=== PATIENT | female | born 1955 | race Caucasian/White ===

== ENCOUNTER → 2019-06-05 17:37 | Outpatient (CLI) | payer OTHER, SELFPAY ==
[2019-06-05 15:00] VITALS: BMI 40.5
[2019-06-05 17:58] LABS: Absolute Lymphocyte Count 2.43 X10^3/uL (0.83-4.51); Absolute Neutrophil Count 3.8 X10^3/uL (2.0-7.7); Basophil# 0.03 X10^3/uL; Basophil% 0.4 % (0-1); Eosinophil# 0.11 X10^3/uL; Eosinophils% 1.6 % (0-5); Hematocrit 39.9 % (37-47); Lymphocyte # 2.43 X10^3/ul (4.0); Lymphocyte % 34.7 % (19-41); Mean Corp Hgb Conc 32.6 g/dL (32-36); Mean Corpuscular Hgb 29.5 pg (27.0-32.0); Mean Corpuscular Volume 90.5 fL (81-99); Mean Platelet Vol. 11.2 fl (6.2-12.0); Monocyte# 0.65 X10^3/uL; Monocyte% 9.3 % (0-10); NRBC Flagged by Analyzer 0 % (0-5); Neutrophil # 3.77 X10^3/uL (2.7-7.7); Neutrophil % 53.9 % (47-70); Platelet Count 224 K/mm3 (150-450); RBC Distribution Width CV 12.8 % (11.6-14.6); Red Blood Count 4.41 M/mm3 (4.2-5.4)
[2019-06-05 18:41] LABS: ALB/GLOB Ratio 1.1 RATIO (0.9-2.4); AST(SGOT) 21 U/L (15-37); Alanine Aminotransfer ALT/SGPT 39 U/L (13-56); Albumin, Serum 4.1 g/dL (3.2-5.0); Alkaline Phosphatase 69 U/L (45-117); Anion Gap 4 (5-15); BUN 20 mg/dL (7-18); BUN/Creat Ratio 19.2 RATIO (10-20); Calcium,Total 10.4 mg/dL (8.5-10.1); Chloride 106 mmol/L (98-107); Cholesterol 155 mg/dL (200); Creatinine, Serum 1.04 mg/dL (0.55-1.02); EST Glomerular Filtration Rate 57 mL/min (>60); Est Glom Filt Rate - Afr Amer 69 mL/min (>60); Globulin 3.9 g/dL (2.2-4.2); Glucose 112 mg/dL (74-106); High Density Lipoprotein 48 mg/dL; Potassium 4.1 mmol/L (3.5-5.1); Sodium Level 138 mmol/L (136-145); Thyroid Stim Hormone (TSH) 2.68 uIU/mL (0.358-3.74); Triglycerides 88 mg/dL; Very Low Density Lipoprotein 18 mg/dL (5-40)
[2019-06-05 20:45] LABS: Microalbumin,Random Urine 23.5 mg/L (NO RANGE EST.); Microalbumin:Creatinine Ratio 10.1 mg/g CRE (<30 mg/g CRE)
== END ==
PROVIDERS: PCP Internal Medicine; Visit Provider Internal Medicine
DX: E03.9 Hypothyroidism, unspecified (principal); E11.9 Type 2 diabetes mellitus without complications; E78.5 Hyperlipidemia, unspecified; I10 Essential (primary) hypertension
CPT/HCPCS: 80053; 80061; 82043; 82570; 84443; 85025

== ENCOUNTER 2019-06-26 10:00 | Outpatient (RCR) | payer OTHER, SELFPAY ==
[2019-06-05 15:00] VITALS: BMI 40.5
== END 2019-06-27 23:59 ==
LOC: DC 10:00
PROVIDERS: PCP Internal Medicine; Visit Provider Internal Medicine
DX: Z71.3 Dietary counseling and surveillance (principal); E11.9 Type 2 diabetes mellitus without complications
CPT/HCPCS: 97802; G0108

== ENCOUNTER 2019-07-10 09:59 | Outpatient (RCR) | payer OTHER, SELFPAY ==
[2019-06-05 15:00] VITALS: BMI 40.5
== END 2019-07-28 23:59 ==
LOC: DC 09:59
PROVIDERS: PCP Internal Medicine; Visit Provider Internal Medicine
DX: Z71.3 Dietary counseling and surveillance (principal); E11.9 Type 2 diabetes mellitus without complications
CPT/HCPCS: 97803

== ENCOUNTER 2019-08-27 09:29 | Outpatient (RCR) | payer OTHER, SELFPAY ==
[2019-06-05 15:00] VITALS: BMI 40.5
== END 2019-08-27 23:59 ==
LOC: DC 09:29
PROVIDERS: PCP Internal Medicine; Visit Provider Internal Medicine
DX: Z71.3 Dietary counseling and surveillance (principal); E11.9 Type 2 diabetes mellitus without complications
CPT/HCPCS: 97803

== ENCOUNTER 2019-09-04 08:07 | Outpatient (RCR) | payer OTHER, SELFPAY ==
[2019-06-05 15:00] VITALS: BMI 40.5
== END 2019-09-27 23:59 ==
LOC: DC 08:07
PROVIDERS: PCP Internal Medicine; Visit Provider Internal Medicine
DX: Z71.3 Dietary counseling and surveillance (principal); E11.9 Type 2 diabetes mellitus without complications
CPT/HCPCS: G0108

== ENCOUNTER → 2019-09-20 07:32 | Outpatient (CLI) | payer OTHER, SELFPAY ==
[2019-06-05 15:00] VITALS: BMI 40.5
--- NOTE | 2019-09-20 07:53 | BI_ITS ---
MAMMOGRAPHY - BILATERAL SCREENING REASON FOR EXAM: Female, 63 years old. Routine annual screening examination. PERTINENT HISTORY: Grandmother with breast cancer. TECHNIQUE: Digital bilateral breast carmen (3D mammographic acquisition) in the CC and MLO projections. 2-D mediolateral oblique (MLO) and craniocaudad (CC) views of both breasts were obtained. CAD: Full Field Digital Mammography with Computer Added Detection was performed. COMPARISON: No comparison mammograms available at this time. If any prior films become available, an addendum to this report can be generated. FINDINGS: Breast Composition: The breasts are heterogeneously dense, which may obscure small masses. There is a 1.1 cm x 1.4 cm centimeter nodule in the deep slightly upper aspect of the left breast. Correlation with ultrasound is recommended for further evaluation. No other significant abnormalities are identified. BI/SCREEN MAMM (CAD) W/CARMEN BILAT IMPRESSION: 1.1 cm x 1.4 cm spiculated nodule in the deep slightly upper aspect of the left breast. Correlation with ultrasound is recommended. ASSESSMENT CATEGORY: BIRADS Category 0: Incomplete. Need additional imaging evaluation. A letter regarding these results will be sent to the patient by the facility within 30 days. Approximately 10% of breast cancers are not detected by mammography. A normal mammogram should not delay biopsy of a clinically suspicious abnormality. [id number] Electronically Signed: Ezio Mcgill, at 14:08 EDT , Service support ,
== END ==
PROVIDERS: PCP Internal Medicine; Referring Provider Internal Medicine; Visit Provider Internal Medicine
DX: Z12.31 Encounter for screening mammogram for malignant neoplasm of breast (principal)
CPT/HCPCS: 77063; 77067

== ENCOUNTER 2019-09-23 06:56 | Day surgery (SDC) | payer OTHER, SELFPAY ==
[2019-06-05 15:00] VITALS: BMI 40.5
--- NOTE | 2019-09-23 | COLBX_PTH ---
PATIENT: ANNALISE MANZANO LOC: EN U#:[id number] AGE/SX: 63/F ROOM: RE09/23/[address]: Dr. Kristi Link MD : 1955 BED: DIS: 09/23/2019 SPEC #: [id number] RECD: 09/23/19 11:59 STATUS: ODILON REChristelle #: [id number] MARKELL: 09/23/19 00:[address]: Kristi Link DEPT: SURGICAL PATHOLOGY RECD BY: Stanley Buchanan ENTERED: 09/23/19 12:00 SP TYPE: COLON BX KAI DR: Dr. Michael Brice MD Tissues: A - Ascending colon B - Transverse colon Procedures: Surgery Specimen Level IV HEADER OPERATION: Colonoscopy - open access (MAC) PRE-OP DIAGNOSIS: Screening, history of polyps TISSUE SUBMITTED: A - Biopsy of ascending colon polyp, B - Biopsy of transverse colon polyp MICROSCOPIC DIAGNOSIS A. Ascending colon polyp, biopsy: A fragment of colonic mucosa, no pathologic diagnosis. B. Transverse colon polyp, biopsy: Fragments of tubular adenoma. SJ:caio 09/24/19 MICROSCOPIC DESCRIPTION Slides are reviewed. GROSS DESCRIPTION A - Received in fixative is one container labeled with the patient's name and designated ascending colon polyp. The specimen consists of one irregular fragment of light castelan soft tissue that measures 0.6 x 0.2 x 0.1 cm. The specimen is totally submitted in one cassette. B - Received in fixative is one container labeled with the patient's name and designated transverse colon polyp. The specimen consists of two irregular fragments of light castelan soft tissue that in aggregate measure 0.6 x 0.6 x 0.1 cm. The specimen is totally submitted in one cassette. / AM:caio 09/23/19 TC:1 CPT: 80567 x2
[2019-09-23 07:25] VITALS: BP 147/89; PULSE 63; RESP 16; TEMP 36.5; O2SAT 100; BMI 37.8
[2019-09-23] MEDS: Lactated Ringers 1,000 ML 100 ML IV (07:43)
[2019-09-23 07:50] LABS: Bedside Glucose 87 mg/dL (70-110)
--- NOTE | 2019-09-23 07:57 | HP.PCM_ITS ---
History of Present Illness Date of Admission: 09/23/19 The patient is a 63 year old F presents for screening colonoscopy due to history of colon polyps. Patient dates her last colonoscopy was about 5 years ago and she did have polyps at that time. Patient denies any chronic abdominal pain/nausea/vomiting/reflux. Patient's bowel moods daily denies any blood. Denies any family history of colon cancer. Past Medical/Surgical History - Planned Operation Planned Operative Procedure/s: colonoscopy Date of Operative Procedure: 09/23/19 Permit Signed: No S.O.S: No Is This Patient Having a Total Joint: No - Previous Hospitalizations/Surgeries HX Hospitalizations: No HX of Surgeries: gallbladder. colonoscopy x2 Any Problems With Anesthesia: No You/Your Family Experience Fever (Hyperthermia) With Anes: No Cholinesterase deficiency: No - Cardiovascular Hx Chest Pain within Last 2 months: No Hx of Irregular Heartbeat and/or Afib: No Hx Heart Attack: No Hx Congestive Heart Failure: No Hx Rheumatic Fever: No Hx Hypertension: Yes Hx Internal Defibrillator: No Hx Pacemaker: No Hx Cardiac Catheterization: No Hx Cardiac Surgery/Stents/Etc.: No Hx Stress Test: No - echo in the past HX Edema: Yes - rt ankle per hx Hx Pain in Legs when Walking/Leg Cramps: No - Respiratory Chronic Cough: No HX of Shortness of Breath: No - denies Hoarseness: No Hx Chronic Obstructive Pulmonary Disease (COPD): No Hx Asthma: No Hx Emphysema: No Hx Sleep Apnea: No Hx Oxygen Use at Home: No Hx Respiratory Tract Infection/Cold (presently): No Do You Snore Loudly (louder than talking or can be heard): No Do You Often Feel Tired/ Fatigued/ Sleepy Dring Daytime?: No Has Anyone Observed You Stop Breathing During Sleep?: No Result (for STOP score): Negative Hx Smoking: No Smoking Status: Never smoker - Gastrointestinal Hx Gastroesophageal Reflux: No Hx Gastrointestinal Disorders: Yes - polyps in the past Hx Gastrointestinal Bleed: No Hx Ulcer: No Hx Hiatal Hernia: No Difficulty Chewing/Swallowing: No Recent Onset of Swallowing Problems: No Special diet followed at home: No Hx Unplanned Weight Loss of 20#: No - planned wt loss HX Unplanned Weight Gain of 20#: No - Neurological Hx Seizures: No HX Syncope/Blackout Spells/Unconsciousness: No Hx CVA/Stroke: No Hx Transient Ischemic Attacks (TIA): No Hx Multiple Sclerosis: No Hx Parkinson's Disease: No Hx Head/Neck Injury: No Hx Headaches: No Hx Back Injury/Pain: No Recent Onset of Speech Difficulty: No Restless Legs: No Does patient have nerve stimulator: No Patient instructed to have device shut off: No Rep notified?: No - Blood Disorder Hx Leukemia: No Bleeding Tendencies: No Hx Deep Vein Thrombosis: No Hx High Cholesterol: Yes - on med Blood Transmitted Disease: No Hx Hepatitis: No Hx Cirrhosis: No Hx Anemia: No Hx Blood Disorders: No - Reproduction : No Is Patient Lactating: No Hx Hysterectomy: No Hx Tubal Ligation: No Are You Post Menopause: Yes - Genitourinary Hx Renal Disease: No - Musculoskeletal Hx Arthritis: No Hx Rheumatoid Arthritis: No Hx Gout: No Recent Onset of an Orthopedic Problem: Yes - ankle swelling, rt. has appt podiatry - Endocrine Hx Diabetes: Yes - 12 mos. Insulin: No Thyroid Disease: Yes - on med Hx Steroid Therapy: No - Psycho/Social Hx Substance Use: No Hx Alcohol Use: No Hx Anxiety: No Hx Depression: No Mental Illness: No Hx Dementia: No - Miscellaneous Hx Cancer: No Recent Exposure to Contagious Disease: No Active MRSA: No Hx of C-Diff: No Any Loose Teeth: No Allergies No Known Allergies Allergy (Unverified 09/16/19 09:41) - Discharge Is Pt Admitted From a Senior Care, or a Retirement: No Who Could Help: friend, Edilia After D/C, Where Do you Plan to Go: Return Home - From the PAT History Number of Risk Factors: 2 - Physical Exam Vitals/I&O's: Vital Signs Temp Pulse Resp BP Pulse Ox 97.7 F L 63 16 147/89 H 100 09/23/19 07:25 09/23/19 07:25 09/23/19 07:25 09/23/19 07:25 09/23/19 07:25 Oxygen Delivery Method Room Air Weight: 220 lb 10.923 oz Body Mass Index (BMI) 37.8 General: Alert, Oriented x3, Cooperative, No apparent distress HEENT: Atraumatic Lungs: Normal air movement Cardiovascular: Regular Rhythm Abdomen: Soft, Non Tender, Non-Distended Neurological: Cranial nerves II-XII grossly intact Psych/Mental Status: Normal Affect Laboratory Results 09/23/19 07:28: POC Glucose 87 Current Medications Lactated Ringer's () 1,000 mls @ 100 mls/hr IV .Q10H LIU Last Admin: 09/23/19 07:43 Dose: 100 mls/hr Documented by: Assessment/Plan 63-year-old female with history of colon polyps Procedure Criteria Procedure Type: Elective COVID Risk Discussion: The surgeon/proceduralist and patient have discussed in detail the risk of exposure to and/or potential harm posed by the COVID-19 virus with having a surgery/procedure at this time versus the risk of delaying the surgery/procedure. It is not possible to know either the risk of delaying the surgery or procedure or chance of getting an infection with perfect accuracy, but a joint decision was made between the patient and the surgeon/proceduralist to proceed at this time with the scheduled surgery/procedure as indicated on the consent form. Surgery Risks - Colonoscopy I discussed with the patient the risks of the procedure: Yes Risks Include but are not Limited To: Risks include but are not limited to: Bleeding, perforation requiring further surgery, inability to complete colonoscopy requiring barium enema.
[2019-09-23 08:35] VITALS: BP 111/63; BP 147/89; PULSE 56; RESP 16; TEMP 35.9; O2SAT 98
--- NOTE | 2019-09-23 08:39 | OP.COLON_ITS ---
Patient Name: Priyanka Talavera Procedure Date: 09/23/2019 7:39 AM Date of : 1955 Age: 63 Procedure: Colonoscopy Indications: High risk colon cancer surveillance: Personal history of colonic polyps Providers: Kristi Link MD Referring MD: Michael Brice MD Medicines: Monitored Anesthesia Care Patient Profile: This is a 63 year old female. Last Colonoscopy: 5 years ago. Complications: No immediate complications. Procedure: Pre-Anesthesia Assessment: - Prior to the procedure, a History and Physical was performed, and patient medications and allergies were reviewed. The patient's tolerance of previous anesthesia was also reviewed. The risks and benefits of the procedure and the sedation options and risks were discussed with the patient. All questions were answered, and informed consent was obtained. Prior Anticoagulants: The patient has taken no previous anticoagulant or antiplatelet agents. ASA Grade Assessment: Per anesthesia. After reviewing the risks and benefits, the patient was deemed in satisfactory condition to undergo the procedure. After I obtained informed consent, the scope was passed under direct vision. Throughout the procedure, the patient's blood pressure, pulse, and oxygen saturations were monitored continuously. The pediatric colonoscope was introduced through the anus and advanced to the cecum, identified by the appendiceal orifice, ileocecal valve and palpation. The colonoscopy was performed without difficulty. The patient tolerated the procedure well. The quality of the bowel preparation was good. Scope In: 8:02:40 AM Scope Withdrawal Time 0 hours 13 minutes 57 seconds Scope Out: 8:28:57 AM Total Procedure Duration Time 0 hours 26 minutes 17 seconds Findings: Hemorrhoids were found on perianal exam. Two sessile polyps were found in the transverse colon and ascending colon. The polyps were less than 5 mm in size. These polyps were removed with a cold biopsy forceps. Resection and retrieval were complete. Internal hemorrhoids were found. The hemorrhoids were Grade I (internal hemorrhoids that do not prolapse). A single small-mouthed diverticulum was found in the sigmoid colon. Impression: - Hemorrhoids found on perianal exam. - Two less than 5 mm polyps in the transverse colon and in the ascending colon, removed with a cold biopsy forceps. Resected and retrieved. - Internal hemorrhoids. - Diverticulosis in the sigmoid colon. Recommendation: - Discharge patient to home. - High fiber diet. - Repeat colonoscopy is recommended. The colonoscopy date will be determined after pathology results from today's exam become available for review. - Continue present medications. Procedure Code(s): --- Professional --- 00823, PT, Colonoscopy, flexible; with biopsy, single or multiple Diagnosis Code(s): --- Professional --- Z86.010, Personal history of colonic polyps K64.0, First degree hemorrhoids D12.3, Benign neoplasm of transverse colon (hepatic flexure or splenic flexure) D12.2, Benign neoplasm of ascending colon K57.30, Diverticulosis of large intestine without perforation or abscess without bleeding CPT copyright 2017 [employer]. All rights reserved. The codes documented in this report are preliminary and upon pearl maker review may be revised to meet current compliance requirements. MD Kristi Couch MD 09/23/2019 8:38:57 AM This report has been signed electronically. Number of Addenda: 0 Note Initiated On: 09/23/2019 7:39 AM
--- NOTE | 2019-09-23 08:39 | OP.CCLET_ITS ---
09/23/2019 Michael Brice MD [address] [place] [address] [place] [address] Re : Colonoscopy procedure for Priyanka Talavera Dear Dr. Brice This procedure was performed on Monday, September 23, 2019. My impressions and recommendations are as follows: Impressions : - Hemorrhoids found on perianal exam. - Two less than 5 mm polyps in the transverse colon and in the ascending colon, removed with a cold biopsy forceps. Resected and retrieved. - Internal hemorrhoids. - Diverticulosis in the sigmoid colon. Recommendations : - Discharge patient to home. - High fiber diet. - Repeat colonoscopy is recommended. The colonoscopy date will be determined after pathology results from today's exam become available for review. - Continue present medications. My findings are described in the full procedure note, which is enclosed. If I can be of further assistance, please feel free to contact me at Doctor phone number(s): , Work: . Sincerely, MD Kristi Couch MD 09/23/2019 8:38:57 AM This report has been signed electronically.
[2019-09-23 08:40] VITALS: BP 121/70; BP 147/89; PULSE 57; RESP 16; O2SAT 98
[2019-09-23 08:45] VITALS: BP 119/71; BP 147/89; PULSE 54; RESP 16; O2SAT 98
[2019-09-23 08:50] VITALS: BP 125/76; BP 147/89; PULSE 51; RESP 16; TEMP 35.8; O2SAT 100
[2019-09-23 09:13] VITALS: BP 147/89
== END 2019-09-23 09:17 | disposition home or self-care (01) ==
LOC: EN 07:05 → AC 07:15
PROVIDERS: Anesthesiology; PCP Internal Medicine; Referring Provider Internal Medicine; Visit Provider Surgery
PROC: 0DJD8ZZ Inspection of Lower Intestinal Tract, Via Natural or Artificial Opening Endoscopic (ICD-10-PCS; CPT 45378; principal; 2019-09-23 07:55)
DX: Z12.11 Encounter for screening for malignant neoplasm of colon (principal); Z87.19 Personal history of other diseases of the digestive system; K64.0 First degree hemorrhoids; D12.3 Benign neoplasm of transverse colon; D12.2 Benign neoplasm of ascending colon; K57.30 Diverticulosis of large intestine without perforation or abscess without bleeding; I10 Essential (primary) hypertension; E11.9 Type 2 diabetes mellitus without complications; E78.00 Pure hypercholesterolemia, unspecified
CPT/HCPCS: 45380; 82962; 87635; 88305; G2023; J7120; U0003

== ENCOUNTER 2019-10-03 09:37 | Outpatient (RCR) | payer OTHER, SELFPAY ==
[2019-09-25 10:45] VITALS: BMI 37.8
== END 2019-10-28 23:59 ==
LOC: DC 09:37
PROVIDERS: PCP Internal Medicine; Visit Provider Internal Medicine
DX: Z71.3 Dietary counseling and surveillance (principal); E11.9 Type 2 diabetes mellitus without complications
CPT/HCPCS: G0109

== ENCOUNTER → 2019-10-04 10:58 | Outpatient (CLI) | payer OTHER, SELFPAY ==
[2019-09-25 10:45] VITALS: BMI 37.8
--- NOTE | 2019-10-04 10:58 | US_ITS ---
STUDY: ULTRASOUND BREAST - LEFT REASON FOR EXAM: Female, 63 years old. Abnormal screening mammogram. TECHNIQUE: Axial and longitudinal images of the LEFT breast were performed with a high resolution ultrasound transducer. # OF IMAGES: 55 COMPARISON: Comparison is made with prior mammogram dated 09/20/2019 and 10/04/2019. FINDINGS: LEFT Breast: There is a 6 mm x 5 mm x 3 mm cyst at the 5 o''clock position of the breast at 3 cm from the nipple. There is also evidence of a 6 mm x 5 mm x 4 mm cyst with septation at the 6 o''clock position of the breast 3 cm from nipple. The mammographic abnormality is not seen on ultrasound. Additional mammographic examination will be performed. US/Breast Limited Unilateral IMPRESSION: 2 subcentimeters cysts are seen as described. Additional mammographic views will be performed. ASSESSMENT CATEGORY: BIRADS Category 0: Incomplete. Need additional imaging evaluation. A letter regarding these results will be sent to the patient by the facility within 30 days. Electronically Signed: Ezio Mcgill, at 14:49 EDT , Service support ,
--- NOTE | 2019-10-04 11:22 | BI_ITS ---
MAMMOGRAPHY - UNILATERAL DIAGNOSTIC: LEFT BREAST REASON FOR EXAM: Female, 63 years old. Abnormal screening mammogram. PERTINENT HISTORY: Grandmother with breast cancer. TECHNIQUE: Compression spot views of the left breast in the mediolateral oblique and craniocaudad views were obtained. 3-D mammographic acquisition of the left breast was obtained as well. CAD: Full Field Digital Mammography with Computer Added Detection was performed. COMPARISON: Comparison is made with prior mammogram dated 09/20/2019. FINDINGS: Breast Composition: The breasts are heterogeneously dense, which may obscure small masses. Persistent 1.1 cm by 1.4 cm nodule in the deep slightly upper aspect of the left breast. With negative ultrasound, A biopsy is recommended. No other significant abnormalities are identified. BI/DIAG MAMM W/CAD, UNILAT IMPRESSION: Persistent nodule in the deep slightly upper aspect of the left breast as described. A biopsy is recommended. ASSESSMENT CATEGORY: BIRADS Category 4: Suspicious - Biopsy Should Be Considered. A letter regarding these results will be sent to the patient by the facility within 30 days. Approximately 10% of breast cancers are not detected by mammography. A normal mammogram should not delay biopsy of a clinically suspicious abnormality. Electronically Signed: Ezio Mcgill, at 13:23 EDT , Service support ,
== END ==
PROVIDERS: PCP Internal Medicine; Referring Provider Internal Medicine; Visit Provider Internal Medicine
DX: R92.8 Other abnormal and inconclusive findings on diagnostic imaging of breast (principal); Z80.3 Family history of malignant neoplasm of breast
CPT/HCPCS: 76642; 77065

== ENCOUNTER → 2019-10-14 13:55 | Outpatient (CLI) | payer OTHER, SELFPAY ==
[2019-10-14 09:30] VITALS: BMI 37.8
[2019-10-18 13:56] LABS: HPV APTIMA, High Risk Negative (Negative)
== END ==
PROVIDERS: PCP Internal Medicine; Referring Provider Nurse Practitioner Women's Health; Visit Provider Nurse Practitioner Women's Health
DX: Z01.411 Encounter for gynecological examination (general) (routine) with abnormal findings (principal); N89.8 Other specified noninflammatory disorders of vagina; Z12.4 Encounter for screening for malignant neoplasm of cervix
CPT/HCPCS: 87070; 87205; 87624; 88175; G0145

== ENCOUNTER 2019-10-23 05:38 | Day surgery (SDC) | payer OTHER, SELFPAY ==
[2019-10-09 08:20] VITALS: BMI 37.8
--- NOTE | 2019-10-09 09:22 | HP_ITS ---
Intake Vital Signs 10/09/19 BMI 37.8 10/09/19 Height 5 ft 4 in 10/09/19 Weight: 213 lb 10/09/19 BMI 36.6 10/09/19 BP 118/79 10/09/19 Blood Pressure Location Rt brachial 10/09/19 Position Sitting 10/09/19 Respiration 16 Intake Visit Reasons: Birads 4 L Breast Chief Complaint: 3 m f/u [employer] Supervisor Required: No Is patient in pain?: No Allergies No Known Allergies Allergy (Verified 10/09/19 08:19) Medications metformin 500 mg tablet,extended release 24 hr 500 mg PO DAILY #90 tab 06/05/19 [Rx Confirmed 10/09/19] atorvastatin 20 mg tablet 20 mg PO DAILY #90 tab 09/26/19 [Rx Confirmed 10/09/19] levothyroxine 112 mcg tablet 112 mcg PO DAILY #90 tab 09/26/19 [Rx Confirmed 10/09/19] olmesartan 20 mg tablet 20 mg PO DAILY #90 tab 09/26/19 [Rx Confirmed 10/09/19] [facility] Medical History Thyroid disease (Chronic) High cholesterol (Chronic) High blood pressure (Chronic) Diabetes (Chronic) Surgical History History of cholecystectomy (Acute) Family History Sister Autoimmune disease Father Myocardial infarction Mother Hypertension High cholesterol Thyroid disorder Skin cancer Social History (Updated 10/09/19 @ 09:[address] Wally Najera MD) Smoking Status: Never smoker alcohol intake: never substance use type: does not use what type of physical activity do you participate in: walking frequency: 3-4 times per week HPI HPI HPI: ANNALISE MANZANO, is a 63 F who presents to the office today for HPI HPI Surgical H&P: Yes HPI: ANNALISE MANZANO, is a 63 F who presents to the office today for For 2 issues. #1 patient has an abnormal mammogram completed at [facility] on 10/04/2019. There is a 1.1 x 1.4 cm nodule slightly deep upper aspect of the left breast with a negative ultrasound and they were recommending a biopsy be performed. When reviewing this lesion it is difficult to see it at all even on the mammograms and reviewing the ultrasounds I agree that there is nothing there to be seen. In addition the patient has a mass on her upper inner thigh on the right side. She has been losing weight and this is been irritating for her particularly when she is walking. ROS General General: No weight change, appetite, fatigue, colon cancer, breast cancer or weakness HEENT HEENT: No difficulty swallowing, eye injury, eye surgery, swollen glands or hoarseness Endo Endocrine: Yes thyroid disease and diabetes mellitus; no thyroid cancer, Hair loss, heat intolerance or cold intolerance Skin Skin: No rash or changing moles Breast Breast: Yes abnormal mammogram and abnormal US; no left breast lump, right breast lump, nipple discharge, breast pain or breast enlargement Musc Musculoskeletal: No back problems, arthritis, rheumatoid arthritis, gout or joint pain Cardio Cardiovascular: Yes high blood pressure; no murmur, pacemaker, heart disease, atrial fibrillation, heart attack, heart stent, palpitations, shortness of breat with exertion or chest pain Psych Psychiatric: No depression, anxiety or hearing voices Resp Respiratory: No shortness of breath, No sleep apnea, No cough, No COPD, No asthma, No emphysema, No wheezing Gastro Gastrointestinal: No abdominal pain, No nausea or vomiting, No diarrhea, No constipation, No blood in stool, No acid reflux, No hemorrhoids, No ulcers, Yes gallbladder problem, No black,tarry stools Ze Hematologic: No blood thinners, No blood disorders, No bleeding, No anemia, No blood clots Neuro Neurologic: No system reviewed and no additional complaints, except as docu, No as per HPI, No abnormal walking, No abnormal hearing, No abnormal movements, No abnormal speech, No behavioral changes, No burning sensations, No confusion, No seizure-like activity, No unsteadiness, No dizziness, No localized weakness, No frequent falls, No headache(s), No lack of coordination, No loss of vision, No memory loss, No numbness, No other visual disturbances, No radiating pain, No restless legs, No sensory deficit, No fainting, No tingling, No tremor(s), No weakness, No other Exam Const General: no acute distress, well developed, well hydrated Orientation: oriented to person, oriented to place, oriented to time [facility] Head: normocephalic, atraumatic Ears: external ears normal Mouth: moist mucous membranes Eyes Sclera: sclerae normal Pupils: normal by confrontation Neck Neck: no lymphadenopathy noted Neck mass: No Thyroid: thyroid normal, symmetrical Chest Chest palpation & inspection: normal inspection of the chest Breast Palpation: No nipple discharge Other: No masses can be palpated at this time. Resp Effort & Inspection: normal respiratory effort Auscultation: clear to auscultation bilaterally Percussion: percussion normal Cardio Rate: regular rate Rhythm: regular rhythm Heart Sounds: no murmurs GI Palpation: soft, no hepatosplenomegaly, no masses, nontender Rectal Exam: other Other: Rectal exam deferred. Skin Other: Large 15 cm lesion in the upper medial thigh consistent with a soft tissue lipoma. It does not feel firm like a sarcoma Extrem General: normal to inspection, no clubbing, cyanosis or edema Assessment & Plan Problems 1. Abnormal mammogram of left breast R92.8 2. Lesion of subcutaneous tissue L98.9 Plan I know from past experience that there is no way I am going to be able to biopsy this lesion in her left breast using her fissure table. I am going to get a referral from the [facility] to see if this is a biopsy that they can be performed. The lesion on her upper inner thigh needs to be removed in the OR. We will do an excision of this. I have counseled the patient as to the risks of the procedure, including but not limited to: infection, bleeding, injury to any blood vessels/nerves, injury to any bowel/bladder, injury to any intraabdominal organs such as the liver/spleen, perforation of the GI tract, intraabdominal abscess/bleeding, incisional hernias, injury to the common bile duct/biliary ducts, injury to the spermatic cord/vessels/testicles, recurrence of hernia(s), complications of anesthesia, etc. The patient verbalizes understanding. Coding Level of Care Code Off vis,new,level 4 Diagnoses Abnormal mammogram of left breast R92.8 Lesion of subcutaneous tissue L98.9 COVID (Procedure Consent) Procedure Criteria Procedure Criteria: Yes Elective The surgeon/proceduralist and patient have discussed in detail the risk of exposure to and/or potential harm posed by the COVID-19 virus with having a surgery/procedure at this time versus the risk of? delaying the surgery/procedure. It is not possible to know either the risk of delaying the surgery or procedure or chance of getting an infection with perfect accuracy, but a joint decision was made between the patient and the surgeon/proceduralist ?to proceed at this time with the scheduled surgery/procedure as indicated on the consent form. 10/09/19 0923 <Electronically signed by Wally membreno MD> Date _ Wally Najera MD I have re-examined the patient. There are no clinical changes since date of exam.
[2019-10-14 09:30] VITALS: BMI 37.8
[2019-10-23] VITALS (8 sets, daily range): BP systolic 91–118; BP diastolic 54–84; PULSE 59–66; RESP 16; TEMP 36.1–36.4; O2SAT 93–99; BMI 36.3
[2019-10-23 06:30] LABS: Bedside Glucose 100 mg/dL (70-110)
[2019-10-23] MEDS: Lactated Ringers 1,000 ML 100 ML IV (06:37)
[2019-10-23] MEDS: Cefazolin 2 GM in 0.9% Normal Saline 100 ML IV (07:28)
--- NOTE | 2019-10-23 07:30 | CYST_PTH ---
PATIENT: ANNALISE MANZANO LOC: [facility] U#:[id number] AGE/SX: 63/F ROOM: RE10/23/[address]: Dr. Wally Najera MD : 1955 BED: DIS: 10/23/2019 SPEC #: [id number] RECD: 10/23/19 10:02 STATUS: ODILON MEIR #: [id number] MARKELL: 10/23/19 07:[address]: Wally Najera DEPT: SURGICAL PATHOLOGY RECD BY: Gomez Ibarra ENTERED: 10/23/19 10:23 SP TYPE: Cyst OTHR DR: Dr. Michael Brice MD Tissues: CYST Procedures: Surgery Specimen Level III HEADER OPERATION: Excision of 7.5 cm sebaceous cyst right thigh PRE-OP DIAGNOSIS: Lesion upper inner right thigh TISSUE SUBMITTED: 7.5 cm sebaceous cyst upper inner right thigh MICROSCOPIC DIAGNOSIS Cyst of upper inner right thigh, excision: Epidermal inclusion cyst. AM:caio 10/24/19 MICROSCOPIC DESCRIPTION Slides are reviewed. GROSS DESCRIPTION Received in fixative is one container labeled with the patient's name and designated right thigh sebaceous cyst. The specimen consists of a castelan-pink cyst previously ruptured focally measuring 6.5 x 5.5 x 2 cm. The cyst is filled with applesauce-like material. Retail Grocer sections are submitted in one cassette. / SJ:caio 10/23/19 TC:5 CPT: 56735
[2019-10-23] MEDS: Bupivacaine Mpf 0.5% 30 ML VIAL (07:48)
--- NOTE | 2019-10-23 08:11 | PCM.OPRPT ---
Problem List (1) Lesion of subcutaneous tissue Status: Acute (2) Sebaceous cyst Status: Acute Report of Operation Date of Procedure: 10/23/19 Pre-Operative Diagnosis: Lesion of subcutaneous tissues to right inner thigh Post-Operative Diagnosis: 7-1/2 cm sebaceous cyst to right inner thigh Surgery/Procedure Performed:: Excision of a 7-1/2 cm sebaceous cyst to right inner thigh Type of Anesthesia:: General Anesthesiologist: Joseph Lunsford Specimen's removed: 7-1/2 cm sebaceous cyst Estimated Blood Loss (mL): < 25 cc Description of Procedure: Patient was brought into the operating room. Placed in the supine position. Under excellent general anesthetic the legs were placed up in stirrups and right inner thigh was sterilely prepped draped in usual fashion. Local was injected incision was made I dissected down and encountered a sebaceous cyst I evacuated the cystic contents and then with the use of electrocautery I remove the entire capsule of the sebaceous cyst. I sent this to pathology for permanent sectioning. I irrigated out the wound. I brought the wound together with deep dermal stitches of 3-0 Vicryl then a running 4-0 nylon on the skin. Sterile dressings were applied and the patient tolerated the procedure well. - Admit VTE Documentation VTE Present on Admission: No VTE Mechan Device Prophylaxis: SCD's VTE Pharm Prophylaxis ordered?: No Reason prophylaxis not ordered:: Treatment Not Indicated 114x: 29410 Exc tr-ext b9+juliann >4.0 cm
--- NOTE | 2019-10-23 08:14 | DCINST_ITS ---
Discharge Diet: Light diet - advance as tolerated - If you have questions about your diet instructions, please talk to your doctor. Discharge Activity: May Not Drive - for 1 week or while taking narcotic pain medicine. May shower in (days): 1 Lifting Restrictions: 10 pounds Call your doctor if your incision/area has: Continuous Slow Oozing, Sudden Increased Bleeding, Increased Pain/ Swelling, Increased Redness, Foul Smelling Discharge Call your doctor if you observe: Fever of 101 or Higher Suture Line Care: Avoid Pulling/Pushing, Avoid Pinching/Bending Additional Dressing/Incision Instructions:: Change or remove dressing in 4 days. Leave steri-strips in place for 1 week. Allergies/Adverse Reactions: Allergies No Known Allergies Allergy (Verified 10/23/19 06:07) Medications to take at Discharge metformin 500 mg tablet,extended release 24 hr 500 mg PO DAILY #90 tab 06/05/19 atorvastatin 20 mg tablet 20 mg PO DAILY #90 tab 09/26/19 levothyroxine 112 mcg tablet 112 mcg PO DAILY #90 tab 09/26/19 olmesartan 20 mg tablet 20 mg PO DAILY #90 tab 09/26/19 Oxycodone HCl/Acetaminophen [Percocet 5/325] 1 - 2 tablet PO Q4H PRN PRN 6 Days #30 tablet 10/23/19 The following prescriptions were given: Oxycodone HCl/Acetaminophen [Percocet 5/325] 1 - 2 tablet PO Q4H PRN PRN 6 Days #30 tablet PRN Reason: Pain Transmission Status: Received by [id number] Primary Care Physician: Michael Brice MD [Primary Care Provider] - Test Results: Test results from this visit will be discussed in further detail at your follow- up appointment, if applicable. Please Follow Up With: Wally Najera MD - [phone] When: Call to make an appointment to be seen in about 10 days.
[2019-10-23 08:30] LABS: Bedside Glucose 87 mg/dL (70-110)
== END 2019-10-23 10:25 | disposition home or self-care (01) ==
LOC: SDC 05:41 → AC 05:41
PROVIDERS: Anesthesiology; PCP Internal Medicine; Referring Provider Surgery; Visit Provider Surgery
PROC: (CPT 11406; principal; 2019-10-23 07:15)
DX: L72.3 Sebaceous cyst (principal); E03.9 Hypothyroidism, unspecified; E78.00 Pure hypercholesterolemia, unspecified; E11.9 Type 2 diabetes mellitus without complications; I10 Essential (primary) hypertension; Z79.84 Long term (current) use of oral hypoglycemic drugs; Z79.899 Other long term (current) drug therapy
CPT/HCPCS: 11406; 82962; 87635; 88304; 94799; J7120; J2405; U0003

== ENCOUNTER → 2019-11-07 08:31 | Outpatient (CLI) | payer OTHER, SELFPAY ==
--- NOTE | 2019-10-09 09:22 | HP_ITS ---
Intake Vital Signs 10/09/19 BMI 37.8 10/09/19 Height 5 ft 4 in 10/09/19 Weight: 213 lb 10/09/19 BMI 36.6 10/09/19 BP 118/79 10/09/19 Blood Pressure Location Rt brachial 10/09/19 Position Sitting 10/09/19 Respiration 16 Intake Visit Reasons: Birads 4 L Breast Chief Complaint: 3 m f/u Head Housekeeper Required: No Is patient in pain?: No Allergies No Known Allergies Allergy (Verified 10/09/19 08:19) Medications metformin 500 mg tablet,extended release 24 hr 500 mg PO DAILY #90 tab 06/05/19 [Rx Confirmed 10/09/19] atorvastatin 20 mg tablet 20 mg PO DAILY #90 tab 09/26/19 [Rx Confirmed 10/09/19] levothyroxine 112 mcg tablet 112 mcg PO DAILY #90 tab 09/26/19 [Rx Confirmed 10/09/19] olmesartan 20 mg tablet 20 mg PO DAILY #90 tab 09/26/19 [Rx Confirmed 10/09/19] [facility] Medical History Thyroid disease (Chronic) High cholesterol (Chronic) High blood pressure (Chronic) Diabetes (Chronic) Surgical History History of cholecystectomy (Acute) Family History Sister Autoimmune disease Father Myocardial infarction Mother Hypertension High cholesterol Thyroid disorder Skin cancer Social History (Updated 10/09/19 @ 09:[address] Wally Najera MD) Smoking Status: Never smoker alcohol intake: never substance use type: does not use what type of physical activity do you participate in: walking frequency: 3-4 times per week HPI HPI HPI: ANNALISE MANZANO, is a 63 F who presents to the office today for HPI HPI Surgical H&P: Yes HPI: ANNALISE MANZANO, is a 63 F who presents to the office today for For 2 issues. #1 patient has an abnormal mammogram completed at [facility] on 10/04/2019. There is a 1.1 x 1.4 cm nodule slightly deep upper aspect of the left breast with a negative ultrasound and they were recommending a biopsy be performed. When reviewing this lesion it is difficult to see it at all even on the mammograms and reviewing the ultrasounds I agree that there is nothing there to be seen. In addition the patient has a mass on her upper inner thigh on the right side. She has been losing weight and this is been irritating for her particularly when she is walking. ROS General General: No weight change, appetite, fatigue, colon cancer, breast cancer or weakness HEENT HEENT: No difficulty swallowing, eye injury, eye surgery, swollen glands or hoarseness Endo Endocrine: Yes thyroid disease and diabetes mellitus; no thyroid cancer, Hair loss, heat intolerance or cold intolerance Skin Skin: No rash or changing moles Breast Breast: Yes abnormal mammogram and abnormal US; no left breast lump, right breast lump, nipple discharge, breast pain or breast enlargement Musc Musculoskeletal: No back problems, arthritis, rheumatoid arthritis, gout or joint pain Cardio Cardiovascular: Yes high blood pressure; no murmur, pacemaker, heart disease, atrial fibrillation, heart attack, heart stent, palpitations, shortness of breat with exertion or chest pain Psych Psychiatric: No depression, anxiety or hearing voices Resp Respiratory: No shortness of breath, No sleep apnea, No cough, No COPD, No asthma, No emphysema, No wheezing Gastro Gastrointestinal: No abdominal pain, No nausea or vomiting, No diarrhea, No constipation, No blood in stool, No acid reflux, No hemorrhoids, No ulcers, Yes gallbladder problem, No black,tarry stools Ze Hematologic: No blood thinners, No blood disorders, No bleeding, No anemia, No blood clots Neuro Neurologic: No system reviewed and no additional complaints, except as docu, No as per HPI, No abnormal walking, No abnormal hearing, No abnormal movements, No abnormal speech, No behavioral changes, No burning sensations, No confusion, No seizure-like activity, No unsteadiness, No dizziness, No localized weakness, No frequent falls, No headache(s), No lack of coordination, No loss of vision, No memory loss, No numbness, No other visual disturbances, No radiating pain, No restless legs, No sensory deficit, No fainting, No tingling, No tremor(s), No weakness, No other Exam Const General: no acute distress, well developed, well hydrated Orientation: oriented to person, oriented to place, oriented to time [facility] Head: normocephalic, atraumatic Ears: external ears normal Mouth: moist mucous membranes Eyes Sclera: sclerae normal Pupils: normal by confrontation Neck Neck: no lymphadenopathy noted Neck mass: No Thyroid: thyroid normal, symmetrical Chest Chest palpation & inspection: normal inspection of the chest Breast Palpation: No nipple discharge Other: No masses can be palpated at this time. Resp Effort & Inspection: normal respiratory effort Auscultation: clear to auscultation bilaterally Percussion: percussion normal Cardio Rate: regular rate Rhythm: regular rhythm Heart Sounds: no murmurs GI Palpation: soft, no hepatosplenomegaly, no masses, nontender Rectal Exam: other Other: Rectal exam deferred. Skin Other: Large 15 cm lesion in the upper medial thigh consistent with a soft tissue lipoma. It does not feel firm like a sarcoma Extrem General: normal to inspection, no clubbing, cyanosis or edema Assessment & Plan Problems 1. Abnormal mammogram of left breast R92.8 2. Lesion of subcutaneous tissue L98.9 Plan I know from past experience that there is no way I am going to be able to biopsy this lesion in her left breast using her fissure table. I am going to get a referral from the [facility] to see if this is a biopsy that they can be performed. The lesion on her upper inner thigh needs to be removed in the OR. We will do an excision of this. I have counseled the patient as to the risks of the procedure, including but not limited to: infection, bleeding, injury to any blood vessels/nerves, injury to any bowel/bladder, injury to any intraabdominal organs such as the liver/spleen, perforation of the GI tract, intraabdominal abscess/bleeding, incisional hernias, injury to the common bile duct/biliary ducts, injury to the spermatic cord/vessels/testicles, recurrence of hernia(s), complications of anesthesia, etc. The patient verbalizes understanding. Coding Level of Care Code Off vis,new,level 4 Diagnoses Abnormal mammogram of left breast R92.8 Lesion of subcutaneous tissue L98.9 COVID (Procedure Consent) Procedure Criteria Procedure Criteria: Yes Elective The surgeon/proceduralist and patient have discussed in detail the risk of exposure to and/or potential harm posed by the COVID-19 virus with having a surgery/procedure at this time versus the risk of? delaying the surgery/procedure. It is not possible to know either the risk of delaying the surgery or procedure or chance of getting an infection with perfect accuracy, but a joint decision was made between the patient and the surgeon/proceduralist ?to proceed at this time with the scheduled surgery/procedure as indicated on the consent form. 10/09/19 0923 <Electronically signed by Wally membreno MD> Date _ Wally Najera MD
[2019-11-01 15:02] VITALS: BMI 36.3
--- NOTE | 2019-11-07 | IMM_PTH ---
PATIENT: ANNALISE MANZANO LOC: [facility] U#:[id number] AGE/SX: 69/F ROOM: RE11/07/[address]: Dr. Sean Jaramillo MD : 1955 BED: DIS: SPEC #: [id number] RECD: 11/11/19 07:39 STATUS: ODILON REQ #: [id number] MARKELL: 11/07/19 00:[address]: Sean Jaramillo DEPT: IMMUNOHISTOCHEMISTRY RECD BY: Irene Ruvalcaba ENTERED: 11/11/19 07:40 SP TYPE: IMMUNO OTHR DR: Dr. Michael Brice MD Tissues: Left breast, NOS Procedures: CALPONIN-1 (add) CK5-6 (add) CK8 (add) E-CAD (add) HER2 CORNELIUS (add) KI-67 (add) P53 (add) MT (add) P40 (add) ER (initial) PHYSICIAN & [address] [address] SPECIMEN INFORMATION: Tissue Source: Left breast Clinical Info: Left lateral breast density Specimen Number: [id number] CPT code: 84995, 24393 x6, 38970 x3 METHODOLOGY: Deparaffinized sections of prefer/formalin-fixed tissue or PAP/DQ stained slides are incubated with monoclonal/polyclonal antibodies/oligonucleotide probes. Localization is made via biotin free immunoperoxidase method. Appropriate controls are performed and reacted as expected. Results on target cell population are indicated in the following table: RESULTS: ANTIBODY / CLONE RESULT P53 (DO-7) positive, 10%, dim Ki-67 (30-9) positive, 6% CK8 (83txoiI00) positive CK5-6 (D5 & 1684) positive, carcinoma Calponin-1 (JN569A) negative P40 (BC28) negative E-Cad (ECH-6) positive MORPHOMETRIC ANALYSIS ER (clone 6F11) positive, >95%, strong MT (clone 16/1E2) positive, >95%, strong Her-2Neu (clone CB11) positive, 2-3+ The prognostic test for HER2 is performed on formalin-fixed paraffin embedded tissue. A 3+ (positive) staining pattern is defined as intense, homogeneous, complete, circumferential membranous staining in >10% of contiguous tumor cells. A similar weak (2+) staining pattern is interpreted as equivocal. GEN follow-up testing is recommended for all equivocal cases. Positivity/negativity for ER/MT is reported if > or < 1% of the tumor cells are immuno- reactive, respectively. The ASCO/CAP criteria is used for scoring. Reference: Journal of Clinical Oncology, 2013; 31:7069-1836 & 2010; 16:8286-5798. Duration of fixation: 10.5 Hrs; Sample Adequate: Yes. These assays have not been validated on decalcified tissues. Results should be interpreted with caution given the likelihood of false negativity on decalcified specimens. These tests were developed and their performance characteristics determined by [facility]. They may not have been cleared or approved by the U.S. Food and Drug Administration. The FDA has determined that such clearance or approval is not necessary. The above immunohistochemical/dualISH markers are ordered and reviewed by the Pathologist. INTERPRETATION: Left breast, stereotactic core biopsy: Ductal carcinoma in situ, nuclear grade 1-2. AM:caio 11/11/19 Case has been reviewed in consultation with Dr. Reed who concurs with the above diagnosis. IDC:SJ
--- NOTE | 2019-11-07 09:00 | BRBX_PTH ---
PATIENT: ANNALISE MANZANO LOC: [facility] U#:[id number] AGE/SX: 69/F ROOM: RE11/07/[address]: Dr. Sean Jaramillo MD : 1955 BED: DIS: SPEC #: [id number] RECD: 11/07/19 09:53 STATUS: ODILON MEIR #: [id number] MARKELL: 11/07/19 09:[address]: Sean Jaramillo DEPT: SURGICAL PATHOLOGY RECD BY: Joshua Bianchi ENTERED: 11/07/19 13:33 SP TYPE: BREAST BX OTHR DR: Dr. Michael Brice MD Tissues: Left breast, NOS Procedures: Surgery Specimen Level IV HEADER OPERATION: Left stereotactic breast biopsy PRE-OP DIAGNOSIS: Left lateral breast density TISSUE SUBMITTED: Left breast core tissue ISCHEMIC TIME: 1 minute FIXATION TIME: 10.5 hours MICROSCOPIC DIAGNOSIS Left breast, stereotactic needle core biopsy: Ductal carcinoma in situ with the following characteristics: Maximal length - 1.2 millimeters Nuclear Grade - 2 Type - cribriform with focal comedo necrosis. AM:caio 11/08/19 COMMENT ER/RI/Jsx6glh studies are being performed on sections of tumor and the results from this study will be reported separately ([id number]). Case has been reviewed in consultation with Dr. Reed who concurs with the above diagnosis. IDC:SJ MICROSCOPIC DESCRIPTION Slides are reviewed. GROSS DESCRIPTION Received is one container labeled with the patient's name and not further designated. The specimen consists of multiple irregular fragments of yellow to light castelan fibrofatty tissue that in aggregate measure 2.5 x 2 x 0.2 cm. The specimen is totally submitted in one cassette. / AM:caio 11/07/19 TC:0 CPT: 24507
--- NOTE | 2019-11-07 09:18 | PCM.OPRPT ---
Problem List (1) Left breast mass Status: Acute Report of Operation Date of Procedure: 11/07/19 Pre-Operative Diagnosis: Left breast abnormal mammogram Post-Operative Diagnosis: Same Surgery/Procedure Performed:: Stereotactic guided left breast core needle biopsy with clip placement Description of Procedure: Patient was placed on the stereotactic table and the left breast was compressed and mammographic views were obtained. The abnormality was visualized and +/- 15 degree views were obtained. The computer was used to localize the mass and the position was programmed in the computer. Next the skin was prepped and anesthetized. A small yadira was made in the skin with a scalpel. Next the needles deployed into the breast and several biopsies were obtained. A clip was then placed into the breast and the needle was removed. Images were obtained and the clip was in place. A Steri-Strip and bandage were placed over the incision and the patient was sent for mammographic views. Patient tolerated the procedure well.
== END ==
PROVIDERS: PCP Internal Medicine; Referring Provider Surgery; Visit Provider Surgery
DX: D05.12 Intraductal carcinoma in situ of left breast (principal); E78.00 Pure hypercholesterolemia, unspecified; E11.9 Type 2 diabetes mellitus without complications; I10 Essential (primary) hypertension; Z90.49 Acquired absence of other specified parts of digestive tract; L98.9 Disorder of the skin and subcutaneous tissue, unspecified
CPT/HCPCS: 19081; 88305; 88341; 88342; J7050; A4648

== ENCOUNTER 2019-11-27 12:02 | Day surgery (SDC) | payer OTHER, SELFPAY ==
[2019-11-01 15:02] VITALS: BMI 36.3
[2019-11-27 12:30] VITALS: BP 141/90; PULSE 65; RESP 16; TEMP 36.3; O2SAT 100; BMI 36.8
--- NOTE | 2019-11-27 12:30 | BI_ITS ---
SURGICAL BREAST SPECIMEN RADIOGRAPH CLINICAL: Document presence of tissue clip marker in biopsy specimen. FINDINGS: Specimen shows presence of tissue clip marker. Electronically Signed: Ezio Mcgill, at 15:59 EDT , Service support , BI/Breast Biopsy Specimen
[2019-11-27] MEDS: Lactated Ringers 1,000 ML 100 ML IV (12:45)
[2019-11-27 12:50] LABS: Bedside Glucose 100 mg/dL (70-110)
--- NOTE | 2019-11-27 13:23 | PCM.HP.STD ---
Problem List (1) Ductal carcinoma in situ (DCIS) of left breast Status: Acute History of Present Illness Date of Admission: 11/27/19 The patient is a 64 year old F who has stereotactic biopsy of the left breast which showed DCIS. Patient has been having no issues since her biopsy. Past Medical History Past Medical History (Chronic Problems): Chronic Problems (Last Updated 11/01/19 @ 15:00 by Nay Schultz) Lipoma (Chronic) Hypothyroidism (Chronic) Type 2 diabetes mellitus (Chronic) Thyroid disease (Chronic) High cholesterol (Chronic) High blood pressure (Chronic) Diabetes (Chronic) Medical History: Medical History (Last Updated 11/01/19 @ 15:00 by Nay Schultz) Thyroid disease (Chronic) E07.9 High cholesterol (Chronic) E78.00 High blood pressure (Chronic) I10 Diabetes (Chronic) E11.9 Epidermal inclusion cyst L72.0 Allergies No Known Allergies Allergy (Verified 11/27/19 12:29) Home Medications: Ambulatory Orders Medication Instructions Recorded metformin 500 mg tablet,extended 500 mg PO DAILY #90 tab 06/05/19 release 24 hr atorvastatin 20 mg tablet 20 mg PO DAILY #90 tab 09/26/19 levothyroxine 112 mcg tablet 112 mcg PO DAILY #90 tab 09/26/19 olmesartan 20 mg tablet 20 mg PO DAILY #90 tab 09/26/19 Surgical History: Surgical History (Last Updated 11/01/19 @ 15:01 by Nay Schultz) History of cholecystectomy Z90.49 1994 history excision skin lesion right inner thigh Onset Date: ~10/23/19 Smoking Status: Never smoker Tobacco Use: Non-smoker Review of Systems Constitutional: Denies: Anorexia, Chills, Fever HEENT: Denies: Difficulty Swallowing Cardiovascular: Denies: Chest Pain Respiratory: Denies: Cough Gastrointestinal: Denies: Abdominal Pain, Nausea Genitourinary: Denies: Dysuria Musculoskeletal: Denies: Joint Tenderness Skin: Denies: Dryness, Jaundice Neurological: Denies: Tingling Psychiatric: Denies: Anxiety Hematologic/ Lymphatic: Denies: Anemia VTE Information - Inpt Only VTE Present on Admission: No VTE Mechan Device Prophylaxis: SCD's Patient Problems: Active and Suspected Problems (Last Updated 11/01/19 @ 15:00 by Nay Schultz) Ductal carcinoma in situ (DCIS) of left breast (Acute) - Physical Exam Vitals/I&O's: Vital Signs Temp Pulse Resp BP Pulse Ox 97.3 F L 65 16 141/90 H 100 11/27/19 12:30 11/27/19 12:30 11/27/19 12:30 11/27/19 12:30 11/27/19 12:30 Oxygen Delivery Method Room Air Weight: 214 lb 11.684 oz Body Mass Index (BMI) 36.8 General: Alert, Oriented x3 Neck: No JVD Lungs: Normal air movement Cardiovascular: Regular rate, Regular Rhythm Abdomen: Soft, Non Tender, Non-Distended Laboratory Results 11/27/19 12:35: POC Glucose 100 Current Medications Lactated Ringer's () 1,000 mls @ 100 mls/hr IV .Q10H LIU Last Admin: 11/27/19 12:45 Dose: 100 mls/hr Documented by: Assessment/Plan All Active Problems (Last Updated 11/01/19 @ 15:00 by Nay Schultz) Left breast mass (Acute) Ductal carcinoma in situ (DCIS) of left breast (Acute) Lesion of subcutaneous tissue (Acute) Sebaceous cyst (Acute) The patient has DCIS of the left breast. This was found on stereotactic biopsy. I discussed surgical management with her. I discussed left partial mastectomy with removal of this area of DCIS. I did discuss the possibility of sentinel lymph node biopsy. I offered her sentinel lymph node biopsy but also discussed that the standard of care is to remove the DCIS and if any invasive cancer is present she would have to come back to surgery for sentinel lymph node biopsy. I also discussed the possibility of positive margins and reoperation. The patient chose to proceed with partial mastectomy without sentinel lymph node biopsy at this time knowing that sentinel lymph node biopsy would be warranted if invasive cancer is identified. I also discussed sending the patient to oncology and radiation oncology after surgery for evaluation. I explained that radiation may be necessary. I discussed the risks of the procedure including not limited to bleeding, infection, injury to other organs, need for further surgery for positive margins. Patient understands and is well to proceed. We discussed the current risks associated with COVID-19. While it is understood that there is a community spread of COVID-19, the risk of patrick COVID-19 while at [facility] ([facility]) is very low; however, the risk cannot be completely mitigated because of the community spread of the disease. We discussed in detail the risk of exposure to and/or potential harm posed by the COVID-19 virus with having a surgery/procedure at this time versus the risk of delaying the surgery/procedure. It is not possible to know either the risk of delaying the surgery or procedure or chance of getting an infection with perfect accuracy, but a joint decision was made to proceed at this time with the scheduled surgery/procedure as indicated on the consent form. Patient was notified that we will need to comply with any screening or testing [facility] wishes to perform or that surgery may be delayed for any positive results. Sean Jaramillo MD Pager: [facility] [address] [place] [address], [address] [place] [address] Office: I have re-examined the patient. There are no clinical changes since date of exam.
--- NOTE | 2019-11-27 13:30 | BRBX_PTH ---
PATIENT: ANNALISE MANZANO LOC: [facility] [place] U#:[id number] AGE/SX: 64/F ROOM: RE11/27/[address]: Dr. Sean Jaramillo MD : 1955 BED: DIS: 11/27/2019 SPEC #: [id number] RECD: 11/27/19 14:25 STATUS: ODILON REChristelle #: [id number] MARKELL: 11/27/19 13:[address]: Sean Jaramillo DEPT: SURGICAL PATHOLOGY RECD BY: Irene Ruvalcaba ENTERED: 11/28/19 07:40 SP TYPE: BREAST BX OTHR DR: Dr. Michael Brice MD Tissues: Left breast, NOS Procedures: Surgery Specimen Level V HEADER OPERATION: Left breast stereotactic wire localization lumpectomy PRE-OP DIAGNOSIS: DCIS left breast TISSUE SUBMITTED: Left breast mass, short stitch - superior, long stitch - lateral MICROSCOPIC DIAGNOSIS Left breast, lumpectomy: Ductal carcinoma in situ. See cancer checklist below. AM:caio 12/02/19 COMMENT DUCTAL CARCINOMA IN SITU SUMMARY: Procedure - Lumpectomy Specimen: Type - partial breast Laterality - left breast Size (extent of DCIS): Estimated size (extent) - 1.5 x 1 x 1 cm Number of blocks - 7 of 12 blocks Architectural pattern - cystic, solid, cribriform and comedo Nuclear grade - 2/3 Necrosis - focally present Margins - uninvolved by in situ carcinoma. Distance from closest margin - 0.5 mm from closest anterior and inferior margins of excision. Regional lymph nodes: Not submitted Microcalcifications - present in non-neoplastic tissue. Additional Pathologic Findings - fibrocystic change and focal intraductal hyperplasia with atypia, changes of previous biopsy. Ancillary Studies from previous specimen ([id number] / [id number]): ER - positive, >95%, strong [place] - positive, >95%, strong Her2 brenda ([facility]) - positive, 2-3+ Clinical history - mass of left breast Pathologic Staging: Tis(DCIS) Nx Mx The above summary is in compliance with [employer] [place] [employer] (CAP) Cancer Protocols Checklist and [place] Joint Committee on Cancer (AJCC), Staging Manual, 8th Ed. MICROSCOPIC DESCRIPTION Slides are reviewed. GROSS DESCRIPTION Received fresh for OR consultation labeled with the patient's name is a specimen designated left breast partial mastectomy. The specimen consists of an oriented fragment of castelan-yellow fibrofatty tissue that is wire guided measuring 8.5 x 4 x 2 cm and weighing 37.8 gm. The specimen is differentially inked as follows: anterior - yellow, posterior - black, superior - blue, inferior - green, medial - red and lateral - orange. Serial sections reveal an ovoid light castelan lesion measuring 1.5 x 1 x 1 cm. The lesion is located 5 mm from its closest (inferior) margin of excision. The proximity of the lesion to its closest margin is discussed with the surgeon intraoperatively. The remainder of the breast parenchyma is white-castelan and somewhat firm. No other lesions are identified. Dance Costume Designer sections are submitted in 12 cassettes after additional fixation as follows: 1 & 2 - perpendicular margin, 3 & 4 - lesion with adjacent perpendicular inferior margin, 5 - remainder of lesion, 6-12 - sales development representative sections of breast parenchyma adjacent to and away from lesion. / AM:caio 11/28/19 TC:0 [facility]: [id number], [id number] ADDENDUM ADDENDUM ADDENDUM ADDENDUM 12/06/2019 12:39 ADDENDUM 12/06/2019 12:39 ADDENDUM 12/06/2019 12:39 ADDENDUM 12/06/2019 12:39 ADDENDUM 12/06/2019 12:39 Approximately 15 mm length of ductal carcinoma is located 5 mm from the closest inferior margin of excision. Case is discussed with Dr. Konrad Foster on 12/05/[address] Gage.
--- NOTE | 2019-11-27 13:30 | BRBX_PTH ---
PATIENT: ANNALISE MANZANO LOC: [facility] [place] U#:[id number] AGE/SX: 64/F ROOM: RE11/27/[address]: Dr. Sean Jaramillo MD : 1955 BED: DIS: 11/27/2019 SPEC #: [id number] RECD: 11/27/19 14:25 STATUS: ODILON REChristelle #: [id number] MARKELL: 11/27/19 13:[address]: Sean Jaramillo DEPT: SURGICAL PATHOLOGY RECD BY: Irene Ruvalcaba ENTERED: 11/28/19 07:40 SP TYPE: BREAST BX OTHR DR: Dr. Michael Brice MD Tissues: Left breast, NOS Procedures: Surgery Specimen Level V HEADER OPERATION: Left breast stereotactic wire localization lumpectomy PRE-OP DIAGNOSIS: DCIS left breast TISSUE SUBMITTED: Left breast mass, short stitch - superior, long stitch - lateral MICROSCOPIC DIAGNOSIS Left breast, lumpectomy: Ductal carcinoma in situ. See cancer checklist below. AM:caio 12/02/19 COMMENT DUCTAL CARCINOMA IN SITU SUMMARY: Procedure - Lumpectomy Specimen: Type - partial breast Laterality - left breast Size (extent of DCIS): Estimated size (extent) - 1.5 x 1 x 1 cm Number of blocks - 7 of 12 blocks Architectural pattern - cystic, solid, cribriform and comedo Nuclear grade - 2/3 Necrosis - focally present Margins - uninvolved by in situ carcinoma. Distance from closest margin - 0.5 mm from closest anterior and inferior margins of excision. Regional lymph nodes: Not submitted Microcalcifications - present in non-neoplastic tissue. Additional Pathologic Findings - fibrocystic change and focal intraductal hyperplasia with atypia, changes of previous biopsy. Ancillary Studies from previous specimen ([id number] / [id number]): ER - positive, >95%, strong [place] - positive, >95%, strong Her2 brenda ([facility]) - positive, 2-3+ Clinical history - mass of left breast Pathologic Staging: Tis(DCIS) Nx Mx The above summary is in compliance with [employer] [place] [employer] (CAP) Cancer Protocols Checklist and [place] Joint Committee on Cancer (AJCC), Staging Manual, 8th Ed. MICROSCOPIC DESCRIPTION Slides are reviewed. GROSS DESCRIPTION Received fresh for OR consultation labeled with the patient's name is a specimen designated left breast partial mastectomy. The specimen consists of an oriented fragment of castelan-yellow fibrofatty tissue that is wire guided measuring 8.5 x 4 x 2 cm and weighing 37.8 gm. The specimen is differentially inked as follows: anterior - yellow, posterior - black, superior - blue, inferior - green, medial - red and lateral - orange. Serial sections reveal an ovoid light castelan lesion measuring 1.5 x 1 x 1 cm. The lesion is located 5 mm from its closest (inferior) margin of excision. The proximity of the lesion to its closest margin is discussed with the surgeon intraoperatively. The remainder of the breast parenchyma is white-castelan and somewhat firm. No other lesions are identified. Scanner Operator sections are submitted in 12 cassettes after additional fixation as follows: 1 & 2 - perpendicular margin, 3 & 4 - lesion with adjacent perpendicular inferior margin, 5 - remainder of lesion, 6-12 - patient intake representative sections of breast parenchyma adjacent to and away from lesion. / AM:caio 11/28/19 TC:0 [facility]: [id number], [id number] ADDENDUM ADDENDUM ADDENDUM ADDENDUM 12/09/2019 11:33 ADDENDUM 12/09/2019 11:33 ADDENDUM 12/09/2019 11:33 ADDENDUM 12/09/2019 11:33 ADDENDUM 12/09/2019 11:33 Approximately 15 mm length of ductal carcinoma is located 0.5 mm from the closest inferior margin of excision. Case is discussed with Dr. Konrad Foster on 12/05/[address] Gage.
[2019-11-27] MEDS: Cefazolin 2 GM in 0.9% Normal Saline 100 ML IV (13:41)
[2019-11-27] MEDS: Bupiv/Epi 0.25% 30 ML Vial (14:26)
[2019-11-27 14:45] VITALS: BP 135/83; BP 141/90; PULSE 62; PULSE 63; RESP 16; TEMP 35.7; O2SAT 96; O2SAT 97
--- NOTE | 2019-11-27 14:49 | PCM.OPRPT ---
Problem List (1) Ductal carcinoma in situ (DCIS) of left breast Status: Acute Report of Operation Date of Procedure: 11/27/19 Pre-Operative Diagnosis: Left breast DCIS Post-Operative Diagnosis: Same Surgery/Procedure Performed:: 1. Stereotactic wire localization. 2. Left partial mastectomy Specimen's removed: Left partial mastectomy Description of Procedure: Patient was taken to the stereotactic room and placed on the stereotactic table. Mammographic images of the left breast were taken and the mass was localized with a clip and stereotactic images were obtained. The skin was numbed and the needle was placed into the mass and the wire was deployed and the needle was removed. The patient was then sent for mammogram Next the patient was taken to the operating room and general anesthesia was induced. The left breast was prepped and draped in usual sterile fashion. A curvilinear incision was marked inferior to the nipple and then anesthetized. An incision was made with a scalpel and flaps are raised with electrocautery. The wire was delivered into the incision and followed to the mass. The mass was circumferentially dissected free using electrocautery. It was marked for orientation and sent for mammogram and pathology. The mass did contain the entire wire and clip on mammogram. The cavity was irrigated and suctioned dry and hemostasis was obtained using electrocautery. The incision was closed with interrupted 3-0 Vicryl sutures as well as a running 4-0 Monocryl suture and then glue was applied. Patient was awoken and taken to PACU in stable condition. - Admit VTE Documentation VTE Mechan Device Prophylaxis: SCD's
--- NOTE | 2019-11-27 14:52 | DCINST_ITS ---
Discharge Diet: No Restrictions Discharge Activity: May Not Drive - for 2-3 days or while taking narcotic pain meds. May shower in (days): 1 Lifting Restrictions: 10 pounds for 1 week. Call your doctor if your incision/area has: Continuous Slow Oozing, Sudden In creased Bleeding, Increased Pain/ Swelling, Increased Redness, Foul Smelling Discharge, Swelling at the incision site Call your doctor if you observe: Fever of 101 or Higher Suture Line Care: Avoid Pulling/Pushing, Avoid Pinching/Bending Remove Dressing in (days):: 1 - Remove bulky dressing tomorrow. May leave any opsite dressing for 3-4 days. Keep dressing in place until your follow-up appointment. Allergies/Adverse Reactions: Allergies No Known Allergies Allergy (Verified 11/27/19 12:29) Medications to take at Discharge metformin 500 mg tablet,extended release 24 hr 500 mg PO DAILY #90 tab 06/05/19 atorvastatin 20 mg tablet 20 mg PO DAILY #90 tab 09/26/19 levothyroxine 112 mcg tablet 112 mcg PO DAILY #90 tab 09/26/19 olmesartan 20 mg tablet 20 mg PO DAILY #90 tab 09/26/19 Oxycodone HCl/Acetaminophen [Percocet 5-325 mg Tablet] 1 - 2 tab PO Q6H PRN PRN 5 Days #20 tablet 11/27/19 The following prescriptions were given: Oxycodone HCl/Acetaminophen [Percocet 5-325 mg Tablet] 1 - 2 tab PO Q6H PRN PRN 5 Days #20 tablet PRN Reason: Pain Score 4-10/10 Transmission Status: Sent to [facility] Please Follow Up With: Sean Jaramillo MD When: Please call to schedule 2 week follow up appointment. [phone]
[2019-11-27 15:00] VITALS: BP 131/85; BP 141/90; PULSE 63; RESP 16; O2SAT 95
[2019-11-27 15:15] VITALS: BP 141/90; BP 149/94; PULSE 59; RESP 16; O2SAT 97
[2019-11-27 15:16] VITALS: BP 141/90; BP 143/88; PULSE 58; RESP 16; TEMP 36.1; O2SAT 98
[2019-11-27 16:20] VITALS: BP 121/70; BP 141/90; PULSE 61; RESP 16; TEMP 36.1; O2SAT 95
== END 2019-11-27 16:34 | disposition home or self-care (01) ==
LOC: SDC 12:03 → AC 12:04
PROVIDERS: Anesthesiology; PCP Internal Medicine; Referring Provider Surgery; Visit Provider Surgery
PROC: (CPT 19301; principal; 2019-11-27 13:15)
DX: D05.12 Intraductal carcinoma in situ of left breast (principal); I10 Essential (primary) hypertension; E11.9 Type 2 diabetes mellitus without complications; E03.9 Hypothyroidism, unspecified; Z79.84 Long term (current) use of oral hypoglycemic drugs; Z79.899 Other long term (current) drug therapy
CPT/HCPCS: 19301; 19281; 76098; 82962; 87635; 88305; 88307; C9803; J7120; J2405; U0003

== ENCOUNTER 2020-01-02 09:42 | Outpatient (RCR) | payer OTHER, SELFPAY ==
[2019-10-23 06:08] VITALS: BMI 36.3
[2019-12-19 14:10] VITALS: BMI 37.3
[2019-12-25 09:37] VITALS: BMI 36.3
== END 2020-01-02 23:59 | disposition home or self-care (01) ==
LOC: DC 09:42
PROVIDERS: PCP Internal Medicine; Visit Provider Internal Medicine
DX: E11.9 Type 2 diabetes mellitus without complications (principal)
CPT/HCPCS: G0109

== ENCOUNTER → 2020-09-23 09:13 | Outpatient (CLI) | payer OTHER, SELFPAY ==
[2019-12-19 14:10] VITALS: BMI 37.3
[2020-09-23 08:42] VITALS: BMI 41.3
[2020-09-23 12:49] LABS: Anion Gap 6 (5-15); BUN 20 mg/dL (7-18); Calcium,Total 9.6 mg/dL (8.5-10.1); Chloride 106 mmol/L (98-107); EST Glomerular Filtration Rate 59 mL/min (>60); Est Glom Filt Rate - Afr Amer 72 mL/min (>60); Glucose 130 mg/dL (74-106); Potassium 4.1 mmol/L (3.5-5.1); Sodium Level 139 mmol/L (136-145); Thyroid Stim Hormone (TSH) 3.34 uIU/mL (0.358-3.74)
== END ==
PROVIDERS: PCP Internal Medicine; Referring Provider Internal Medicine; Visit Provider Internal Medicine
DX: I10 Essential (primary) hypertension (principal); E03.9 Hypothyroidism, unspecified
CPT/HCPCS: 36415; 80048; 84443

== ENCOUNTER → 2020-10-22 07:01 | Outpatient (CLI) | payer OTHER, SELFPAY ==
[2019-12-19 14:10] VITALS: BMI 37.3
[2020-09-23 08:42] VITALS: BMI 41.3
--- NOTE | 2020-10-22 07:03 | BI_ITS ---
MAMMOGRAPHY - BILATERAL SCREENING REASON FOR EXAM: Female, 64 years old. Routine annual screening examination. PERTINENT HISTORY: Personal history of breast cancer. The patient is status post left lumpectomy and radiation. Grandmother with breast cancer. TECHNIQUE: Digital bilateral breast carmen (3D mammographic acquisition) in the CC and MLO projections. 2-D mediolateral oblique (MLO) and craniocaudad (CC) views of both breasts were obtained. CAD: Full Field Digital Mammography with Computer Added Detection was performed. COMPARISON: Comparison is made with prior examination of 09/20/2019 and 10/04/2019. FINDINGS: Breast Composition: The breasts are heterogeneously dense, which may obscure small masses. Since prior study, the patient underwent lumpectomy in the central lateral aspect of the left breast. There now is evidence of a 4.6 cm x 4 cm well-defined nodular density at the operative site. This may represent a postoperative seroma or resolving hematoma. Correlation with ultrasound is recommended. No other significant abnormalities are identified. BI/SCRN MAMM (CAD)W/CARMEN BILAT IMPRESSION: Status post left lumpectomy with the resultant 4.6 cm x 4 cm well-defined nodular density at the operative site. Correlation with ultrasound is recommended. ASSESSMENT CATEGORY: BIRADS Category 0: Incomplete. Need additional imaging evaluation. A letter regarding these results will be sent to the patient by the facility within 30 days. Approximately 10% of breast cancers are not detected by mammography. A normal mammogram should not delay biopsy of a clinically suspicious abnormality. [id number] Electronically Signed: Ezio Mcgill MD at 8:20 EDT , Service support ,
== END ==
PROVIDERS: PCP Internal Medicine; Referring Provider Nurse Practitioner Women's Health; Visit Provider Nurse Practitioner Women's Health
DX: Z12.31 Encounter for screening mammogram for malignant neoplasm of breast (principal)
CPT/HCPCS: 77063; 77067

== ENCOUNTER → 2020-10-23 12:24 | Outpatient (CLI) | payer OTHER, SELFPAY ==
[2019-12-19 14:10] VITALS: BMI 37.3
--- NOTE | 2020-10-23 12:26 | US_ITS ---
STUDY: ULTRASOUND BREAST - LEFT REASON FOR EXAM: Female, 64 years old. Abnormal screening mammogram. Status post left lumpectomy. TECHNIQUE: Axial and longitudinal images of the LEFT breast were performed with a high resolution ultrasound transducer. # OF IMAGES: 34 COMPARISON: Comparison is made with prior mammogram dated 10/22/2020. FINDINGS: LEFT Breast: The mammographic abnormality corresponds to a 4.2 cm x 5.6 x 2.6 cm cystic structure directly deep to the lumpectomy site. This most likely represents a postoperative seroma. US/Breast Limited Unilateral IMPRESSION: The mammographic abnormality corresponds to a 4.2 cm x 5.6 cm by 2.6 cm cystic structure. This most likely represents a postoperative seroma. ASSESSMENT CATEGORY: BIRADS Category 2: Benign. A letter regarding these results will be sent to the patient by the facility within 30 days. Electronically Signed: Ezio Mcgill MD at 13:02 EDT , Service support ,
== END ==
PROVIDERS: PCP Internal Medicine; Referring Provider Nurse Practitioner Women's Health; Visit Provider Nurse Practitioner Women's Health
DX: R92.8 Other abnormal and inconclusive findings on diagnostic imaging of breast (principal)
CPT/HCPCS: 76642

== ENCOUNTER → 2020-12-22 10:35 | Outpatient (CLI) | payer MEDICARE, SELFPAY ==
[2019-12-19 14:10] VITALS: BMI 37.3
--- NOTE | 2020-12-22 10:36 | RAD_ITS ---
STUDY: X-RAY - RIGHT ANKLE REASON FOR EXAM: Female, 65 years old. Right ankle pain. TECHNIQUE: 3 view(s) of the ankle. COMPARISON: None. FINDINGS: Osteopenia. Normal visualized distal tibia and fibula. Normal medial and lateral malleoli. Mild arthrosis of the tibiotalar and subtalar joints. Superior and inferior calcaneal spurs. Mild arthrosis of the midfoot. The soft tissue structures are unremarkable. RAD/Ankle min 3 Views IMPRESSION: Osteopenia with osteoarthritic changes as described. Calcaneal spurs. Electronically Signed: Emil Diamond MD at 9:32 EDT , Service support ,
== END ==
PROVIDERS: PCP Internal Medicine; Referring Provider Internal Medicine; Visit Provider Internal Medicine
DX: M25.571 Pain in right ankle and joints of right foot (principal)
CPT/HCPCS: 73610

== ENCOUNTER 2021-03-23 09:38 | Outpatient (CLI) | payer MEDICARE, SELFPAY ==
[2019-12-19 14:10] VITALS: BMI 37.3
[2021-03-23 12:19] LABS: Absolute Lymphocyte Count 1.56 X10^3/uL (0.83-4.51); Absolute Neutrophil Count 2.3 X10^3/uL (2.0-7.7); Basophil# 0.02 X10^3/uL; Basophil% 0.4 % (0-1); Eosinophil# 0.12 X10^3/uL; Eosinophils% 2.7 % (0-5); Hematocrit 39.9 % (37-47); Hemoglobin 13.2 g/dL (12.0-15.0); Lymphocyte # 1.56 X10^3/ul (0.83-4.51); Lymphocyte % 34.5 % (19-41); Mean Corp Hgb Conc 33.1 g/dL (32-36); Mean Corpuscular Hgb 29.9 pg (27.0-32.0); Mean Corpuscular Volume 90.5 fL (81-99); Mean Platelet Vol. 10.9 fl (6.2-12.0); Monocyte% 11.1 % (0-10); NRBC Flagged by Analyzer 0 % (0-5); Neutrophil # 2.31 X10^3/uL (2.7-7.7); Neutrophil % 51.1 % (47-70); Platelet Count 195 K/mm3 (150-450); RBC Distribution Width CV 12.9 % (11.6-14.6); RBC Distribution Width SD 42.8 fl (35.1-43.9); Red Blood Count 4.41 M/mm3 (4.2-5.4); White Blood Count 4.5 K/mm3 (4.4-11.0)
[2021-03-23 12:36] LABS: ALB/GLOB Ratio 0.9 RATIO (0.9-2.4); AST(SGOT) 28 U/L (15-37); Alanine Aminotransfer ALT/SGPT 62 U/L (13-56); Albumin, Serum 3.7 g/dL (3.2-5.0); Alkaline Phosphatase 58 U/L (45-117); Anion Gap 7 (5-15); BUN 20 mg/dL (7-18); BUN/Creat Ratio 17.5 RATIO (10-20); Calcium,Total 8.9 mg/dL (8.5-10.1); Chloride 108 mmol/L (98-107); Cholesterol 119 mg/dL (200); Creatinine, Serum 1.14 mg/dL (0.55-1.02); EST Glomerular Filtration Rate 51 mL/min (>60); Est Glom Filt Rate - Afr Amer 61 mL/min (>60); Globulin 4.1 g/dL (2.2-4.2); Glucose 143 mg/dL (74-106); High Density Lipoprotein 42 mg/dL; Potassium 4.1 mmol/L (3.5-5.1); Protein, Total 7.8 g/dL (6.4-8.2); Sodium Level 140 mmol/L (136-145); Thyroid Stim Hormone (TSH) 3.78 uIU/mL (0.358-3.74); Triglycerides 77 mg/dL; Very Low Density Lipoprotein 15 mg/dL (5-40)
== END 2021-03-23 23:59 | disposition short-term general hospital (02) ==
LOC: BIMLAB 09:39
PROVIDERS: PCP Internal Medicine; Visit Provider Internal Medicine
DX: E11.69 Type 2 diabetes mellitus with other specified complication (principal); E03.9 Hypothyroidism, unspecified
CPT/HCPCS: 36415; 80053; 80061; 84443; 85025

== ENCOUNTER → 2021-07-30 | Outpatient (CLI) | payer MEDICARE, SELFPAY ==
[2019-12-19 14:10] VITALS: BMI 37.3
[2021-07-30 16:20] LABS: Anion Gap 4 (5-15); BUN 18 mg/dL (7-18); BUN/Creat Ratio 18.2 RATIO (10-20); Calcium,Total 9.7 mg/dL (8.5-10.1); Chloride 106 mmol/L (98-107); Creatinine, Serum 0.99 mg/dL (0.55-1.02); EST Glomerular Filtration Rate 60 mL/min (>60); Est Glom Filt Rate - Afr Amer 72 mL/min (>60); Glucose 133 mg/dL (74-106); Potassium 3.9 mmol/L (3.5-5.1); Sodium Level 140 mmol/L (136-145); Thyroid Stim Hormone (TSH) 0.88 uIU/mL (0.358-3.74)
== END | disposition home or self-care (01) ==
LOC: BIMLAB 14:32
PROVIDERS: PCP Internal Medicine; Referring Provider Internal Medicine; Visit Provider Internal Medicine
DX: E11.69 Type 2 diabetes mellitus with other specified complication (principal); E03.9 Hypothyroidism, unspecified
CPT/HCPCS: 36415; 80048; 84443

== ENCOUNTER → 2021-10-25 | Outpatient (CLI) | payer MEDICARE, SELFPAY ==
[2019-12-19 14:10] VITALS: BMI 37.3
--- NOTE | 2021-10-25 10:52 | BI_ITS ---
MAMMOGRAPHY - BILATERAL SCREENING REASON FOR EXAM: Female, 65 years old. Routine annual screening examination. PERTINENT HISTORY: Personal history of breast cancer. Prior left lumpectomy and radiation. Grandmother with breast cancer. TECHNIQUE: Digital bilateral breast carmen (3D mammographic acquisition) in the CC and MLO projections. 2-D mediolateral oblique (MLO) and craniocaudad (CC) views of both breasts were obtained. CAD: Full Field Digital Mammography with Computer Added Detection was performed. COMPARISON: Comparison is made with prior study dated 10/22/2020 and 11/27/2019. FINDINGS: Breast Composition: The breasts are heterogeneously dense, which may obscure small masses. Since prior study, the previously seen nodular density in the deep upper lateral aspect of the left breast as decreased in size in keeping with a resolving seroma. No other abnormality is seen. No other significant abnormalities are identified. BI/SCRN MAMM (CAD)W/CARMEN BILAT IMPRESSION: Interval decrease in size of the previously seen seroma in the deep upper lateral aspect of the left breast. No suspicious abnormality is seen at this time. Yearly follow-up mammogram recommended. (A) ASSESSMENT CATEGORY: BIRADS Category 2: Benign. A letter regarding these results will be sent to the patient by the facility within 30 days. Approximately 10% of breast cancers are not detected by mammography. A normal mammogram should not delay biopsy of a clinically suspicious abnormality. [id number] Electronically Signed: Ezio Mcgill MD at 12:12 EDT ,
== END | disposition home or self-care (01) ==
LOC: OPBI 10:51
PROVIDERS: PCP Internal Medicine; Visit Provider Internal Medicine Medical Oncology
DX: Z12.31 Encounter for screening mammogram for malignant neoplasm of breast (principal); Z80.3 Family history of malignant neoplasm of breast; Z85.3 Personal history of malignant neoplasm of breast
CPT/HCPCS: 77063; 77067

== ENCOUNTER → 2022-04-20 | Outpatient (CLI) | payer MEDICARE, SELFPAY ==
[2019-12-19 14:10] VITALS: BMI 37.3
[2022-04-20 12:43] LABS: Absolute Lymphocyte Count 1.67 X10^3/uL (0.83-4.51); Absolute Neutrophil Count 3.2 X10^3/uL (2.0-7.7); Basophil# 0.03 X10^3/uL; Basophil% 0.5 % (0-1); Eosinophil# 0.16 X10^3/uL; Eosinophils% 2.9 % (0-5); Hematocrit 37.9 % (37-47); Hemoglobin 12.4 g/dL (12.0-15.0); Lymphocyte # 1.67 X10^3/ul (0.83-4.51); Mean Corp Hgb Conc 32.7 g/dL (32-36); Mean Corpuscular Hgb 30.4 pg (27.0-32.0); Mean Corpuscular Volume 92.9 fL (81-99); Mean Platelet Vol. 11.2 fl (6.2-12.0); NRBC Flagged by Analyzer 0 % (0-5); Neutrophil # 3.17 X10^3/uL (2.7-7.7); Neutrophil % 57.1 % (47-70); Platelet Count 177 K/mm3 (150-450); RBC Distribution Width CV 12.8 % (11.6-14.6); RBC Distribution Width SD 43.8 fl (35.1-43.9); Red Blood Count 4.08 M/mm3 (4.2-5.4); White Blood Count 5.6 K/mm3 (4.4-11.0)
[2022-04-20 13:17] LABS: Vitamin D,25 Hydroxy 22.7 ng/mL
[2022-04-20 13:55] LABS: AST(SGOT) 21 U/L (15-37); Alanine Aminotransfer ALT/SGPT 42 U/L (13-56); Albumin, Serum 3.7 g/dL (3.2-5.0); Alkaline Phosphatase 50 U/L (45-117); Anion Gap 9 (5-15); BUN 16 mg/dL (7-18); BUN/Creat Ratio 15.8 RATIO (10-20); Calcium,Total 9.7 mg/dL (8.5-10.1); Chloride 107 mmol/L (98-107); Cholesterol 118 mg/dL (200); Creatinine, Serum 1.01 mg/dL (0.55-1.02); EST Glomerular Filtration Rate 58 mL/min (>60); Est Glom Filt Rate - Afr Amer 70 mL/min (>60); Globulin 3.6 g/dL (2.2-4.2); Glucose 134 mg/dL (74-106); High Density Lipoprotein 46 mg/dL; Potassium 4.1 mmol/L (3.5-5.1); Protein, Total 7.3 g/dL (6.4-8.2); Sodium Level 140 mmol/L (136-145); Thyroid Stim Hormone (TSH) 1.31 uIU/mL (0.358-3.74); Triglycerides 85 mg/dL; Very Low Density Lipoprotein 17 mg/dL (5-40)
[2022-04-20 18:44] LABS: Microalbumin,Random Urine 7.2 mg/L (NO RANGE EST.); Microalbumin:Creatinine Ratio 4.1 mg/g CRE (<30 mg/g CRE)
== END | disposition home or self-care (01) ==
LOC: BIMLAB 09:26
PROVIDERS: PCP Internal Medicine; Referring Provider Internal Medicine; Visit Provider Internal Medicine
DX: D05.12 Intraductal carcinoma in situ of left breast (principal); E11.9 Type 2 diabetes mellitus without complications; I10 Essential (primary) hypertension
CPT/HCPCS: 36415; 80053; 80061; 82043; 82306; 82570; 84443; 85025

== ENCOUNTER → 2022-05-10 | Outpatient (CLI) | payer MEDICARE, SELFPAY ==
[2019-12-19 14:10] VITALS: BMI 37.3
== END | disposition home or self-care (01) ==
LOC: SL 20:09
PROVIDERS: PCP Internal Medicine; Visit Provider Internal Medicine
DX: G47.10 Hypersomnia, unspecified (principal)
CPT/HCPCS: 95810

== ENCOUNTER → 2022-06-09 | Outpatient (CLI) | payer MEDICARE, SELFPAY ==
[2019-12-19 14:10] VITALS: BMI 37.3
== END | disposition home or self-care (01) ==
LOC: SL 09:53
PROVIDERS: PCP Internal Medicine; Visit Provider Internal Medicine
DX: G47.33 Obstructive sleep apnea (adult) (pediatric) (principal); Z99.89 Dependence on other enabling machines and devices

== ENCOUNTER → 2022-07-22 | Outpatient (CLI) | payer MEDICARE, SELFPAY ==
[2019-12-19 14:10] VITALS: BMI 37.3
--- NOTE | 2022-07-22 16:10 | RAD_ITS ---
INDICATION: Fall EXAMINATION/TECHNIQUE: X-RAY - LEFT XR Hand Min 3 Views 3 VIEWS COMPARISON: Concurrent wrist x-ray FINDINGS: SOFT TISSUES: No soft tissue swelling or gas. No radiopaque foreign body. BONES/JOINTS: No acute fracture or subluxation.. Normal alignment. Multifocal joint space narrowing and small osteophytes. RAD/Hand Min 3 Views IMPRESSION: No acute abnormal finding. Multifocal DJD. Electronically Signed: Montrell Neely MD at 16:47 EDT ,
--- NOTE | 2022-07-22 16:12 | RAD_ITS ---
INDICATION: Fall EXAMINATION/TECHNIQUE: X-RAY - LEFT XR Wrist Min 3 Views 3 VIEWS COMPARISON: Concurrent hand x-ray FINDINGS: SOFT TISSUES: No soft tissue swelling or gas. No radiopaque foreign body. BONES/JOINTS: No acute fracture or subluxation. Normal alignment. Joint space narrowing and osteophytes most prominent at the first carpometacarpal joint. RAD/Wrist min 3 Views IMPRESSION: No acute abnormal finding. DJD most prominent at the first carpometacarpal joint. Electronically Signed: Montrell Neely MD at 16:48 EDT ,
== END | disposition home or self-care (01) ==
LOC: MTRAD 16:10
PROVIDERS: PCP Internal Medicine; Referring Provider Physician Assistant; Visit Provider Physician Assistant
DX: M25.532 Pain in left wrist (principal); M79.642 Pain in left hand; W19.XXXA Unspecified fall, initial encounter
CPT/HCPCS: 73110; 73130

== ENCOUNTER → 2022-10-28 | Outpatient (CLI) | payer MEDICARE, SELFPAY ==
[2019-12-19 14:10] VITALS: BMI 37.3
--- NOTE | 2022-10-28 07:06 | BI_ITS ---
MAMMOGRAPHY - BILATERAL SCREENING REASON FOR EXAM: Female, 66 years old. Routine annual screening examination. PERTINENT HISTORY: Personal history of breast cancer. Prior left lumpectomy with radiation treatment. Grandmother with breast cancer. TECHNIQUE: Digital bilateral breast carmen (3D mammographic acquisition) in the CC and MLO projections. 2-D mediolateral oblique (MLO) and craniocaudad (CC) views of both breasts were obtained. CAD: Full Field Digital Mammography with Computer Added Detection was performed. COMPARISON: Comparison is made with prior study October 25, 2021. FINDINGS: Breast Composition: The breasts are heterogeneously dense, which may obscure small masses. Once again, there is a 4.2 cm x 3.1 cm well-defined nodule in the deep slightly upper lateral aspect of the left breast. The patient is status post lumpectomy. This most likely represents a seroma. Previously, it measured 3.3 sinus by 5.2 cm. No other significant abnormalities are identified. There has been no significant change since the prior study. BI/SCRN MAMM (CAD)W/CARMEN BILAT IMPRESSION: Stable bilateral screening mammogram. Yearly follow-up mammogram recommended. (A) ASSESSMENT CATEGORY: BIRADS Category 2: Benign. A letter regarding these results will be sent to the patient by the facility within 30 days. Approximately 10% of breast cancers are not detected by mammography. A normal mammogram should not delay biopsy of a clinically suspicious abnormality. [id number] Electronically Signed: Ezio Mcgill MD at 11:29 EDT ,
== END | disposition home or self-care (01) ==
LOC: OPBI 07:03
PROVIDERS: PCP Internal Medicine; Referring Provider Student in an Organized Health Care Education/Training Program; Visit Provider Student in an Organized Health Care Education/Training Program
DX: Z12.31 Encounter for screening mammogram for malignant neoplasm of breast (principal); Z85.3 Personal history of malignant neoplasm of breast; Z80.3 Family history of malignant neoplasm of breast
CPT/HCPCS: 77063; 77067

== ENCOUNTER → 2023-02-03 | Outpatient (CLI) | payer MEDICARE, SELFPAY ==
[2019-12-19 14:10] VITALS: BMI 37.3
[2023-02-03 12:46] LABS: Absolute Lymphocyte Count 2.13 X10^3/uL (0.83-4.51); Absolute Neutrophil Count 4.8 X10^3/uL (2.0-7.7); Basophil# 0.04 X10^3/uL; Basophil% 0.5 % (0-1); Eosinophil# 0.22 X10^3/uL; Eosinophils% 2.8 % (0-5); Hematocrit 38.9 % (37-47); Hemoglobin 12.7 g/dL (12.0-15.0); Lymphocyte # 2.13 X10^3/ul (0.83-4.51); Lymphocyte % 27.2 % (19-41); Mean Corp Hgb Conc 32.6 g/dL (32-36); Mean Corpuscular Hgb 30.5 pg (27.0-32.0); Mean Corpuscular Volume 93.3 fL (81-99); Mean Platelet Vol. 11.4 fl (6.2-12.0); Monocyte# 0.67 X10^3/uL; Monocyte% 8.6 % (0-10); NRBC Flagged by Analyzer 0 % (0-5); Neutrophil # 4.75 X10^3/uL (2.7-7.7); Neutrophil % 60.6 % (47-70); Platelet Count 215 K/mm3 (150-450); RBC Distribution Width CV 12.7 % (11.6-14.6); RBC Distribution Width SD 43.7 fl (35.1-43.9); Red Blood Count 4.17 M/mm3 (4.2-5.4); White Blood Count 7.8 K/mm3 (4.4-11.0)
[2023-02-03 13:30] LABS: AST(SGOT) 18 U/L (15-37); Alanine Aminotransfer ALT/SGPT 27 U/L (13-56); Albumin, Serum 3.8 g/dL (3.2-5.0); Alkaline Phosphatase 49 U/L (45-117); Anion Gap 4 (5-15); BUN 20 mg/dL (7-18); BUN/Creat Ratio 18.9 RATIO (10-20); Calcium,Total 9.8 mg/dL (8.5-10.1); Chloride 107 mmol/L (98-107); Cholesterol 130 mg/dL (200); Creatinine, Serum 1.06 mg/dL (0.55-1.02); EST Glomerular Filtration Rate 55 mL/min (>60); Est Glom Filt Rate - Afr Amer 67 mL/min (>60); Globulin 3.7 g/dL (2.2-4.2); Glucose 99 mg/dL (74-106); High Density Lipoprotein 58 mg/dL; Potassium 4.6 mmol/L (3.5-5.1); Protein, Total 7.5 g/dL (6.4-8.2); Sodium Level 139 mmol/L (136-145); Thyroid Stim Hormone (TSH) 2.32 uIU/mL (0.358-3.74); Triglycerides 66 mg/dL; Very Low Density Lipoprotein 13 mg/dL (5-40)
== END | disposition home or self-care (01) ==
LOC: BIMLAB 09:57
PROVIDERS: PCP Internal Medicine; Referring Provider Internal Medicine; Visit Provider Internal Medicine
DX: I10 Essential (primary) hypertension (principal); E11.9 Type 2 diabetes mellitus without complications; E03.9 Hypothyroidism, unspecified; D05.12 Intraductal carcinoma in situ of left breast
CPT/HCPCS: 36415; 80053; 80061; 84443; 85025

== ENCOUNTER → 2023-06-09 | Outpatient (CLI) | payer MEDICARE, SELFPAY ==
[2019-12-19 14:10] VITALS: BMI 37.3
[2023-06-09 12:55] LABS: Anion Gap 3 (5-15); BUN 29 mg/dL (7-18); BUN/Creat Ratio 25.2 RATIO (10-20); Calcium,Total 10.7 mg/dL (8.5-10.1); Chloride 105 mmol/L (98-107); Creatinine, Serum 1.15 mg/dL (0.55-1.02); EST Glomerular Filtration Rate 50 mL/min (>60); Est Glom Filt Rate - Afr Amer 60 mL/min (>60); Glucose 106 mg/dL (74-106); Sodium Level 140 mmol/L (136-145)
[2023-06-09 13:48] LABS: Vitamin D,25 Hydroxy 72.7 ng/mL
[2023-06-09 13:51] LABS: Hemoglobin A1c 5.1 % (3.8-5.6)
[2023-06-09 13:53] LABS: PTHIN 35.9 pg/mL (18.4-80.1)
== END | disposition home or self-care (01) ==
LOC: BIMLAB 09:16
PROVIDERS: PCP Internal Medicine; Referring Provider Internal Medicine; Visit Provider Internal Medicine
DX: I10 Essential (primary) hypertension (principal); E11.69 Type 2 diabetes mellitus with other specified complication; E83.52 Hypercalcemia
CPT/HCPCS: 36415; 80048; 82306; 83036; 83970

== ENCOUNTER → 2023-11-03 | Outpatient (CLI) | payer MEDICARE, SELFPAY ==
[2019-12-19 14:10] VITALS: BMI 37.3
--- NOTE | 2023-11-03 07:51 | BI_ITS ---
MAMMOGRAPHY - BILATERAL SCREENING REASON FOR EXAM: Female, 67 years old. Routine annual screening examination. PERTINENT HISTORY: Personal history of breast cancer.. Prior left lumpectomy and radiation treatment. TECHNIQUE: Digital bilateral breast carmen (3D mammographic acquisition) in the CC and MLO projections. 2-D mediolateral oblique (MLO) and craniocaudad (CC) views of both breasts were obtained. CAD: Full Field Digital Mammography with Computer Added Detection was performed. COMPARISON: Comparison is made with prior study dated October 28, 2022 and October 25, 2021. FINDINGS: Breast Composition: The breasts are heterogeneously dense, which may obscure small masses. The patient is status post lumpectomy in the deep central lateral aspect of the left breast. Once again, there is a persistent 4 cm x 2.6 cm well-defined nodule in the deep slightly upper lateral aspect of the left breast. This most likely represents a postoperative seroma. No other significant abnormalities are identified. There has been no significant change since the prior study. BI/SCRN MAMM (CAD)W/CARMEN BILAT IMPRESSION: Stable bilateral screening mammogram. Yearly follow-up mammogram recommended. (A) ASSESSMENT CATEGORY: BIRADS Category 2: Benign. A letter regarding these results will be sent to the patient by the facility within 30 days. Approximately 10% of breast cancers are not detected by mammography. A normal mammogram should not delay biopsy of a clinically suspicious abnormality. [id number] Electronically Signed: Ezio Mcgill MD at 8:35 EDT ,
== END | disposition home or self-care (01) ==
LOC: OPBI 07:50
PROVIDERS: PCP Internal Medicine; Referring Provider Student in an Organized Health Care Education/Training Program; Visit Provider Student in an Organized Health Care Education/Training Program
DX: Z12.31 Encounter for screening mammogram for malignant neoplasm of breast (principal); Z85.3 Personal history of malignant neoplasm of breast
CPT/HCPCS: 77063; 77067

== ENCOUNTER → 2024-01-03 | Outpatient (CLI) | payer MEDICARE, SELFPAY ==
[2019-12-19 14:10] VITALS: BMI 37.3
[2024-01-03 12:09] LABS: Absolute Lymphocyte Count 2.01 X10^3/uL (0.83-4.51); Absolute Neutrophil Count 3.2 X10^3/uL (2.0-7.7); Basophil# 0.03 X10^3/uL; Basophil% 0.5 % (0-1); Eosinophil# 0.21 X10^3/uL; Eosinophils% 3.4 % (0-5); Hematocrit 37.1 % (37-47); Hemoglobin 12.3 g/dL (12.0-15.0); Lymphocyte # 2.01 X10^3/ul (0.83-4.51); Lymphocyte % 32.6 % (19-41); Mean Corp Hgb Conc 33.2 g/dL (32-36); Mean Corpuscular Hgb 31.1 pg (27.0-32.0); Mean Corpuscular Volume 93.9 fL (81-99); Mean Platelet Vol. 11.1 fl (6.2-12.0); Monocyte# 0.69 X10^3/uL; Monocyte% 11.2 % (0-10); NRBC Flagged by Analyzer 0 % (0-5); Neutrophil # 3.22 X10^3/uL (2.7-7.7); Neutrophil % 52.1 % (47-70); Platelet Count 207 K/mm3 (150-450); RBC Distribution Width CV 12.9 % (11.6-14.6); RBC Distribution Width SD 44.6 fl (35.1-43.9); Red Blood Count 3.95 M/mm3 (4.2-5.4); White Blood Count 6.2 K/mm3 (4.4-11.0)
[2024-01-03 12:54] LABS: Microalbumin,Random Urine 11.4 mg/L (NO RANGE EST.)
[2024-01-03 13:08] LABS: ALB/GLOB Ratio 1.1 RATIO (0.9-2.4); AST(SGOT) 18 U/L (15-37); Alanine Aminotransfer ALT/SGPT 32 U/L (13-56); Albumin, Serum 3.7 g/dL (3.2-5.0); Alkaline Phosphatase 50 U/L (45-117); Anion Gap 6 (5-15); BUN 27 mg/dL (7-18); BUN/Creat Ratio 27.4 RATIO (10-20); Calcium,Total 9.6 mg/dL (8.5-10.1); Chloride 107 mmol/L (98-107); Cholesterol 148 mg/dL (200); Creatinine, Serum 0.98 mg/dL (0.55-1.02); EST Glomerular Filtration Rate 60 mL/min (>60); Est Glom Filt Rate - Afr Amer 72 mL/min (>60); Globulin 3.3 g/dL (2.2-4.2); Glucose 99 mg/dL (74-106); High Density Lipoprotein 67 mg/dL; Potassium 4.2 mmol/L (3.5-5.1); Sodium Level 140 mmol/L (136-145); Triglycerides 57 mg/dL; Very Low Density Lipoprotein 11 mg/dL (5-40)
[2024-01-03 13:35] LABS: Hemoglobin A1c 5.1 % (3.8-5.6)
== END | disposition home or self-care (01) ==
LOC: BIMLAB 09:36
PROVIDERS: PCP Internal Medicine; Referring Provider Internal Medicine; Visit Provider Internal Medicine
DX: E11.69 Type 2 diabetes mellitus with other specified complication (principal); I10 Essential (primary) hypertension; E78.5 Hyperlipidemia, unspecified
CPT/HCPCS: 36415; 80053; 80061; 82043; 82570; 83036; 84443; 85025

== ENCOUNTER → 2024-02-01 | Outpatient (CLI) | payer MEDICARE, SELFPAY ==
[2019-12-19 14:10] VITALS: BMI 37.3
--- NOTE | 2024-02-01 08:48 | BD_ITS ---
STUDY: DUAL ENERGY X-RAY ABSORPTIOMETRY / DXA REASON FOR EXAM: Female, 68 years old. Screening for osteoporosis TECHNIQUE: Bone Mineral Density (BMD) measurements of lumbar spine and bilateral hips were obtained. COMPARISON: None. FINDINGS: Lumbar Spine (L1-L4): g/cm2 (1.117) / T-score (0.6) / Z-score (2.6) Findings are suggestive of normal bone density with a low fracture risk. Left Femur Total: g/cm2 (0.923) / T-score (-0.2) / Z-score (1.2) Left Femoral Neck: g/cm2 (0.852) / T-score (0.0) / Z-score (1.7) Right Femur Total: g/cm2 (0.902) / T-score (-0.3) / Z-score (1.1) Right Femoral Neck: g/cm2 (0.846) / T-score (0.0) / Z-score (1.7) BD/Dexa Bone Density Study IMPRESSION: The patient is considered normal as outlined below according to World [employer] Organization (WHO) criteria with a low fracture risk. Reference Information: The T-score is the number of standard deviations above or below the standard which is normal for young adults at their peak bone mineral density. The World Health Organization (WHO) interprets the T-scores as follows: Above -1 Normal bone density Between -1 and -2.5 Osteopenia Equal to / or below -2.5 Osteoporosis As a practical clinical guideline, osteopenia may be graded as follows: Mild -1 through -1.5 Moderate -1.6 through -2.0 Severe -2.1 through -2.4 The Z-score is the number of standard deviations above or below age-matched controls. A Z-score of less than -1.5 would be considered abnormal. References: 1. NIH Osteoporosis and Related Bone Diseases www osteo.org 2. International Society for Clinical Densitometry www iscd.org 3. National Osteoporosis Foundation www nof.org Electronically Signed: Ezio Mcgill MD at 12:29 EST ,
== END | disposition home or self-care (01) ==
LOC: OPBD 08:45
PROVIDERS: PCP Internal Medicine; Referring Provider Nurse Practitioner Women's Health; Visit Provider Nurse Practitioner Women's Health
DX: Z13.820 Encounter for screening for osteoporosis (principal); M81.0 Age-related osteoporosis without current pathological fracture
CPT/HCPCS: 77080

== ENCOUNTER 2024-10-16 10:22 | Day surgery (SDC) | payer MEDICARE, SELFPAY ==
[2019-12-19 14:10] VITALS: BMI 37.3
[2024-10-16] VITALS (7 sets, daily range): BP systolic 97–127; BP diastolic 66–85; PULSE 71–85; RESP 14–16; TEMP 35.9–36.2; O2SAT 95–98; BMI 35.2
[2024-10-16] MEDS: Lactated Ringers 1,000 ML 15 ML IV (11:04)
--- NOTE | 2024-10-16 11:08 | HP.PCM_ITS ---
[facility] - General General Date of Service: 10/16/24 HPI Narrative ANNALISE MANZANO, is a 68 F who presents presents due to screening colonoscopy. Patient last colonoscopy was August 2019 patient did have a tubular adenoma at that time recommended 5-year follow-up. Patient no family history of colon cancer, denies any chronic abdominal pain/nausea/vomiting/reflux. Denies any blood in her stool. Patient was sent a Cologuard in the mail and completed then in July of this year which was negative. Did discuss with patient she would not be a candidate for Cologuard as she has a history of polyps. [facility] Medical History (Updated 10/16/24 @ 11:[address] Kristi Link MD) Former smoker Wears glasses Thyroid disease Gastric reflux Health care maintenance Closed head injury Colon cancer screening Flu vaccine need Right hip pain Hypercalcemia Hyperlipidemia Motion sickness Seasonal affective disorder Hypersomnolence Grief reaction Hypertension Epidermal inclusion cyst High cholesterol Home Medications ?Medication ?Instructions ?Recorded ?Last Taken ?Type calcium carbonate (Calcium 600) 600 mg PO BID 07/27/22 Unknown History cholecalciferol (vitamin D3) 25 50 mcg PO DAILY Unknown History mcg (1,000 unit) capsule olmesartan 20 mg tablet 20 mg PO DAILY bp #90 tabs 0 11/15/23 10/16/24 07:00 Rx levothyroxine 112 mcg tablet 112 mcg PO DAILY #90 tabs 01/24/24 10/16/24 07:00 Rx atorvastatin 20 mg tablet 20 mg PO DAILY #90 tabs 04/27 06/21 Unknown Rx metformin 500 mg tablet,extended See Rx Instructions . Route 05/10/24 Unknown Rx release 24 hr .COMPLEX #180 tabs semaglutide 2 mg/dose (8 mg/3 mL) 2 mg (0.75 mL) subcu t QWEEK 3 08/28/24 10/02/24 Rx subcutaneous pen injector months #9.75 mL Allergy/AdvReac Type Severity Reaction Status Date / Time No Known Allergies Allergy Verified 10/14/24 14:49 Family History Sister Autoimmune disease Father Myocardial infarction Liver cancer Mother Hypertension High cholesterol Thyroid disorder Skin cancer Surgical History Status post left breast lumpectomy history excision skin lesion right inner thigh (~10/23/19) History of cholecystectomy Social History number of children: 2 current occupational status: unemployed history of recent travel: No Smoking Status: Never smoker alcohol intake: never substance use type: does not use what type of physical activity do you participate in: walking frequency: 3-4 times per week seatbelt use: always do you feel safe at home: Yes additional social history: Past Medical/Surgical History Planned Operation Planned Operative Procedure(s): COLONOSCOPY S.O.S: No Previous Hospitalizations/Surgeries HX Hospitalizations: No HX of Surgeries: gallbladder colonoscopy x3 EXC OF CYST R UPPER INNER THIGH Any Problems With Anesthesia: No You/Your Family Experience Fever (Hyperthermia) With Anes: No Cholinesterase deficiency: No Cardiovascular Hx Chest Pain within Last 2 months: No Hx of Irregular Heartbeat and/or Afib: No Hx Heart Attack: No Hx Congestive Heart Failure: No Hx Rheumatic Fever: No Hx Hypertension: Yes (CONTROLLED WITH MEDS) Hx Internal Defibrillator: No Hx Pacemaker: No Hx Cardiac Catheterization: No Hx Cardiac Surgery/Stents/Etc.: No Hx Stress Test: No (echo in the past) Hx Pain in Legs when Walking/Leg Cramps: No Respiratory Chronic Cough: No HX of Shortness of Breath: No (denies) Hoarseness: No Hx Chronic Obstructive Pulmonary Disease (COPD): No Hx Asthma: No Hx Emphysema: No Hx Sleep Apnea: No Hx Respiratory Tract Infection/Cold (presently): No Do You Snore Loudly (louder than talking or can be heard): No Do You Often Feel Tired/ Fatigued/ Sleepy Dring Daytime?: No Has Anyone Observed You Stop Breathing During Sleep?: No Result (for STOP score): Negative Hx Smoking: No Smoking Status: Never smoker Gastrointestinal Hx Gastrointestinal Disorders: Yes (polyps in the past) Hx Gastrointestinal Bleed: No Hx Ulcer: No Hx Hiatal Hernia: No Difficulty Chewing/Swallowing: No Special diet followed at home: Yes (ada) Hx Unplanned Weight Loss of 20#: No (planned wt loss) HX Unplanned Weight Gain of 20#: No Neurological Hx Seizures: No HX Syncope/Blackout Spells/Unconsciousness: No Hx Transient Ischemic Attacks (TIA): No Hx Multiple Sclerosis: No Hx Parkinson's Disease: No Hx Head/Neck Injury: No Hx Headaches: No Hx Back Injury/Pain: No Recent Onset of Speech Difficulty: No Restless Legs: No Does patient have nerve stimulator: No Blood Disorder Hx Leukemia: No Bleeding Tendencies: No Hx Deep Vein Thrombosis: No Hx High Cholesterol: Yes (on med) Blood Transmitted Disease: No Hx Hepatitis: No Hx Cirrhosis: No Hx Anemia: No Hx Blood Disorders: No Reproduction Is Patient Lactating: No Hx Hysterectomy: No Hx Tubal Ligation: No Are You Post Menopause: Yes Genitourinary Hx Renal Disease: No Musculoskeletal Hx Arthritis: No Hx Rheumatoid Arthritis: No Hx Gout: No Recent Onset of an Orthopedic Problem: No (.) Endocrine Hx Diabetes: Yes (oral meds) Insulin: No Thyroid Disease: Yes (on med) Hx Steroid Therapy: No Psycho/Social Hx Substance Use: No Hx Alcohol Use: No Hx Anxiety: No Hx Depression: No Mental Illness: No Hx Dementia: No Miscellaneous Hx Cancer: No Recent Exposure to Contagious Disease: No Hx of C-Diff: No Any Loose Teeth: No Allergies No Known Allergies Allergy (Verified 10/14/24 14:49) Discharge After D/C, Where Do you Plan to Go: Return Home From the [facility] History Number of Risk Factors: 2 Vital Signs Vital Signs Vital Signs: 10/16/24 10:58 10/16/24 10:58 Temperature 97.1 F L Temperature Source Temporal Pulse Rate 71 Respiratory Rate 16 Respiratory Pattern Normal Blood Pressure 127/85 H Blood Pressure Mean 99 Blood Pressure Source Monitor Blood Pressure Position Semi-Fowlers Blood Pressure Location Right Arm Pulse Ox 97 Oxygen Delivery Method Room Air Weight Weight: 205 lb 0.478 oz Body Mass Index (BMI) 35.2 Physical Exam Const alert, oriented x3 and no apparent distress HEENT normocephalic and head/scalp atraumatic Resp normal respiratory effort Cardio regular rate GI soft to palpation and non-tender; Negative for non-distended Palpation: Negative for guarding Extremity Extremity Narrative: No clubbing or cyanosis Skin no rashes or lesions noted Neuro CN's II-XII intact bilaterally Psych mental status grossly normal Assessment & Plan Assessment/Plan (1) Hx of colonic polyp: Surgery Risks - Colonoscopy I discussed with the patient the risks of the procedure: Yes Risks Include but are not Limited To: Risks include but are not limited to: Bleeding, perforation requiring further surgery, inability to complete colonoscopy requiring barium enema.
--- NOTE | 2024-10-16 11:30 | COLBX_PTH ---
PATIENT: ANNALISE MANZANO LOC: EN U#:[id number] AGE/SX: 68/F ROOM: RE10/16/[address]: Dr. Kristi Link MD : 1955 BED: DIS: 10/16/2024 SPEC #: [id number] RECD: 10/16/24 13:52 STATUS: ODILON REQ #: [id number] MARKELL: 10/16/24 11:[address]: Kristi Link DEPT: SURGICAL PATHOLOGY RECD BY: Thomas Dyer ENTERED: 10/16/24 14:33 SP TYPE: COLON BX OTHR DR: Dr. Michael Brice MD Tissues: A - Ascending colon Procedures: Surgery Specimen Level IV HEADER OPERATION: Colonoscopy with polypectomy PRE-OP DIAGNOSIS: History of colonic polyps TISSUE SUBMITTED: A- Ascending colon polyp x3 MICROSCOPIC DIAGNOSIS A. Large intestine, ascending polyp, biopsy: * Tubular adenoma MICROSCOPIC DESCRIPTION Slides are reviewed. GROSS DESCRIPTION A. Received in fixative is one container labeled with the patient's name and designated, ascending colon polyp x 3. The specimen consists of multiple irregular fragments of light castelan tissue that in aggregate measure 2 x 0.8 x 0.1 cm. The specimen is totally submitted in one cassette. [place] 10/16/2024 CPT:36821
--- NOTE | 2024-10-16 11:39 | PCM.PRE.AN2 ---
ASA Classification* ASA Classification ASA Classification: 2 Assessment & Plan Anesthesia* Anesthesia Assessment Anesthesia Assessment: Discussed sedation and/or anesthesia options, risks, benefits, and alternatives with patient/parents/legal guardian/POA. Questions invited. The patient/parents/legal guardian/POA seems to understand and agrees to proceed with anesthesia plan. Reviewed the physical assessment, medical history, allergy history and patient home medications list prior to surgery/procedure/anesthetic and documented any changes. Performed airway and anesthesia risk assessments. Anesthesia Type Anesthesia Type: MAC History Source History Obtained from:: Patient and Chart Anesthesia Focused Assessment* Temperature: 97.1 F Pulse Rate: 71 Blood Pressure: 127/85 Respiratory Rate: 16 Pulse Ox: 97 Oxygen Delivery Method: Room Air Airway Assessment Mouth opens: >3 cm Mallampati Score: III Teeth Condition: Caps/Crowns (Patient has several crowns. They are all tight.) Neck Range of motion (ROM): Limited ROM (Somewhat Decreased) Labs Anesthesia Preop lab: CBC WBC 6.2 K/mm3 (4.4-11.0) 01/03/24 09:37 01/03/24 RBC 3.95 M/mm3 (4.2-5.4) L 01/03/24 09:37 01/03/24 Hgb 12.3 g/dL (12.0-15.0) 01/03/24 09:37 01/03/24 Hct 37.1 % (37-47) 01/03/24 09:37 01/03/24 Plt Count 207 K/mm3 (150-450) 01/03/24 09:37 01/03/24 CHEMISTRY Potassium 4.2 mmol/L (3.5-5.1) 01/03/24 09:37 01/03/24 Sodium 140 mmol/L (136-145) 01/03/24 09:37 01/03/24 BUN 27 mg/dL (7-18) H 01/03/24 09:37 01/03/24 Creatinine 0.98 mg/dL (0.55-1.02) 01/03/24 09:37 01/03/24 Glucose 99 mg/dL (74-106) 01/03/24 09:37 01/03/24 POC Glucose 100 mg/dL (70-110) 11/27/19 12:35 11/27/19 TSH 3.080 uIU/mL (0.358-3.740) 01/03/24 09:37 01/03/24 COAG Pre-Assessment Diagnosis/Proposed Procedure Planned Operative Procedure(s): COLONOSCOPY Anesthesia History 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 When Was Last Pacemaker Check QUESTION #4 FULL TEXT: You/Your Family Experience fever (hyperthermia) with Anesthesia Last Oral Intake Last Oral intake: Last Oral Intake NPO since 21:30 10/16/24 10:58 Meds taken in AM with sips of Yes 10/16/24 10:58 water? Meds patient instructed to 0700 10/16/24 10:58 take am of surgery olmesartan levothyroxine Any additional information?: Yes Meds taken in AM with sips of water?: Yes PONV PONV - spar machine operator helper: PONV - spar machine operator helper Female Yes 10/14/24 14:51 HX of Motion Sickness No 10/14/24 14:51 HX of N/V After Surgery No 10/14/24 14:51 Non-Smoker Yes 10/14/24 14:51 Duration of Surgery greater No 10/14/24 14:51 than 60 minutes Number of Risk Factors 2 10/14/24 14:51 PONV Score Moderate Risk 10/14/24 14:51 Height & Weight Height & Weight: Anesthesia: Height & Weight Height 5 ft 4 in 10/16/24 10:58 Weight: 93 kg 10/16/24 10:58 Body Mass Index (BMI) 35.2 10/16/24 10:58 Respiratory Assessment Respiratory Assessment - spar machine operator helper: Respiratory Tract Infection Hx - spar machine operator helper Hx Respiratory Tract Infection No 10/16/24 11:10 STOP Sleep Apnea STOP Sleep Apnea - spar machine operator helper: STOP Sleep Apnea - spar machine operator helper Hx Hypertension Yes: CONTROLLED WITH MEDS 10/16/24 11:10 Hx Sleep Apnea No 10/16/24 11:10 CPAP BIPAP Do you snore loudly (louder No 10/16/24 11:10 than talking or can be heard Do you often feel tired/ No 10/16/24 11:10 fatigued/ sleepy during daytime? Has anyone observed you stop No 10/16/24 11:10 breathing during sleep? STOP Results Negative 10/16/24 11:18 QUESTION #5 FULL TEXT : Do you snore loudly (louder than talking or can be heard through closed doors)? Tobacco Use History Tobacco Use History - spar machine operator helper: Tobacco Use History - spar machine operator helper Tobacco Use Smoking Status Never smoker 10/16/24 11:10 Hx Tobacco Use No 10/14/24 14:51 Years Smoking Packs Smoked per Day Smoking Cessation Date was within the last 15 years Hx Smoking Cessation Date Hx Smoking Cessation Counseling Hematologic Medial History Hematologic Hx - spar machine operator helper: Hematologic Medical Hx - cook night Hx of Blood Transfusion No 10/14/24 14:51 Hx of Transfusion in last 3 No 10/14/24 14:51 Months Date of Last Transfusion (if within last 3 months) Ever experience any problems No 10/14/24 14:51 with transfusion(s)? Specify any problems Hx of Preganancy in last 3 No 10/14/24 14:51 Months Nurse Filling Out Transfusion [id number] 10/14/24 14:51 & Questions: Date: 10/14/24 10/14/24 14:51 Time: 14:54 10/14/24 14:51 Patient unable to answer at this time (ie. confused, unrespo /Reproduction History /Reproductive History - spar machine operator helper: /Reproductive Hx- spar machine operator helper Hx Now Gestational Age (in weeks): EDC: Hx Hx Para Hx Section SAB No 12/13/23 08:10 Active Medications Active Medications: Current Medications Generic Name Dose Route Start Last Admin Trade Name Freq PRN Reason Stop Dose Admin Lactated Ringer's 1,000 mls @ 15 mls/hr 10/16/24 10:45 10/16/24 11:04 IV 15 mls/hr .Q48H LIU Administration PFSH Medical History (Updated 10/16/24 @ 11:[address] Kristi Link MD) Former smoker Wears glasses Thyroid disease Gastric reflux Health care maintenance Closed head injury Colon cancer screening Flu vaccine need Right hip pain Hypercalcemia Hyperlipidemia Motion sickness Seasonal affective disorder Hypersomnolence Grief reaction Hypertension Epidermal inclusion cyst High cholesterol Home Medications ?Medication ?Instructions ?Recorded ?Last Taken ?Type calcium carbonate (Calcium 600) 600 mg PO BID 07/27/22 Unknown History cholecalciferol (vitamin D3) 25 50 mcg PO DAILY 07/27/22 Unknown History mcg (1,000 unit) capsule olmesartan 20 mg tablet 20 mg PO DAILY bp #90 tabs 11/15/23 10/16/24 07:00 Rx levothyroxine 112 mcg tablet 112 mcg PO DAILY #90 tabs 01/24/24 10/16/24 07:00 Rx atorvastatin 20 mg tablet 20 mg PO DAILY #90 tabs 05/10/24 Unknown Rx metformin 500 mg tablet,extended See Rx Instructions .Route 05/10/24 Unknown Rx release 24 hr .COMPLEX #180 tabs semaglutide 2 mg/dose (8 mg/3 mL) 2 mg (0.75 mL) subcut QWEEK 3 08/28/24 10/02/24 Rx subcutaneous pen injector months #9.75 mL Allergy/AdvReac Type Severity Reaction Status Date / Time No Known Allergies Allergy Verified 10/14/24 14:49 Family History Sister Autoimmune disease Father Myocardial infarction Liver cancer Mother Hypertension High cholesterol Thyroid disorder Skin cancer Surgical History Status post left breast lumpectomy history excision skin lesion right inner thigh (~10/23/19) History of cholecystectomy Social History number of children: 2 current occupational status: unemployed history of recent travel: No Smoking Status: Never smoker alcohol intake: never substance use type: does not use what type of physical activity do you participate in: walking frequency: 3-4 times per week seatbelt use: always do you feel safe at home: Yes additional social history: Review of Systems (Anesthesia) ROS Narrative System reviewed and no additional complaints, except as documented.
--- NOTE | 2024-10-16 12:24 | OP.COLON_ITS ---
Patient Name: Priyanka Talavera Procedure Date: 10/16/2024 11:26 AM Date of : 1955 Age: 68 Procedure: Colonoscopy Indications: Surveillance: Personal history of adenomatous polyps on last colonoscopy 5 years ago Providers: Kristi Link MD Referring MD: Michael Brice MD Medicines: Monitored Anesthesia Care Patient Profile: This is a 68 year old female. Last Colonoscopy: August 2019. Complications: No immediate complications. Procedure: Pre-Anesthesia Assessment: - Prior to the procedure, a History and Physical was performed, and patient medications and allergies were reviewed. The patient's tolerance of previous anesthesia was also reviewed. The risks and benefits of the procedure and the sedation options and risks were discussed with the patient. All questions were answered, and informed consent was obtained. Prior Anticoagulants: The patient has taken no anticoagulant or antiplatelet agents. ASA Grade Assessment: Per anesthesia. After reviewing the risks and benefits, the patient was deemed in satisfactory condition to undergo the procedure. After I obtained informed consent, the scope was passed under direct vision. Throughout the procedure, the patient's blood pressure, pulse, and oxygen saturations were monitored continuously. The Colonoscope was introduced through the anus and advanced to the cecum, identified by the appendiceal orifice, ileocecal valve and palpation. The colonoscopy was performed without difficulty. The patient tolerated the procedure well. The quality of the bowel preparation was good. Scope In: 11:51:55 AM Scope Withdrawal Time 0 hours 16 minutes 30 seconds Scope Out: 12:16:41 PM Total Procedure Duration Time 0 hours 24 minutes 46 seconds Findings: Hemorrhoids were found on perianal exam. Non-bleeding internal hemorrhoids were found. The hemorrhoids were Grade I (internal hemorrhoids that do not prolapse). A few small-mouthed diverticula were found in the sigmoid colon. A 5 mm polyp was found in the ascending colon. The polyp was semi-pedunculated. The polyp was removed with a hot snare. Resection and retrieval were complete. Two sessile polyps were found in the ascending colon. The polyps were less than 5 mm in size. These polyps were removed with a cold biopsy forceps. Resection and retrieval were complete. The exam was otherwise without abnormality. Impression: - Hemorrhoids found on perianal exam. - Non-bleeding internal hemorrhoids. - Diverticulosis in the sigmoid colon. - One 5 mm polyp in the ascending colon, removed with a hot snare. Resected and retrieved. - Two less than 5 mm polyps in the ascending colon, removed with a cold biopsy forceps. Resected and retrieved. - The examination was otherwise normal. Recommendation: - Discharge patient to home. - High fiber diet. - Continue present medications. - Await pathology results. - Repeat colonoscopy in 5 years for surveillance based on pathology results. Procedure Code(s): --- Professional --- 11680, PT, Colonoscopy, flexible; with removal of tumor(s), polyp(s), or other lesion(s) by snare technique 72104, 59, Colonoscopy, flexible; with biopsy, single or multiple Diagnosis Code(s): --- Professional --- D12.2, Benign neoplasm of ascending colon Z86.010, Personal history of colonic polyps K64.0, First degree hemorrhoids K57.30, Diverticulosis of large intestine without perforation or abscess without bleeding CPT copyright 2021 [employer]. All rights reserved. The codes documented in this report are preliminary and upon wastewater technician review may be revised to meet current compliance requirements. MD Kristi Couch MD 10/16/2024 12:24:12 PM This report has been signed electronically. Number of Addenda: 0 Note Initiated On: 10/16/2024 11:26 AM
--- NOTE | 2024-10-16 12:24 | OP.PROVAT_ITS ---
10/16/2024 Michael Brice MD [address] [place] [address] [place] [address] Re : Colonoscopy procedure for Priyanka Talavera Dear Dr. Brice This procedure was performed on Wednesday, October 16, 2024. My impressions and recommendations are as follows: Impressions : - Hemorrhoids found on perianal exam. - Non-bleeding internal hemorrhoids. - Diverticulosis in the sigmoid colon. - One 5 mm polyp in the ascending colon, removed with a hot snare. Resected and retrieved. - Two less than 5 mm polyps in the ascending colon, removed with a cold biopsy forceps. Resected and retrieved. - The examination was otherwise normal. Recommendations : - Discharge patient to home. - High fiber diet. - Continue present medications. - Await pathology results. - Repeat colonoscopy in 5 years for surveillance based on pathology results. My findings are described in the full procedure note, which is enclosed. If I can be of further assistance, please feel free to contact me at Doctor phone number(s): , Work: . Sincerely, MD Kristi Couch MD 10/16/2024 12:24:12 PM This report has been signed electronically.
--- NOTE | 2024-10-16 12:24 | PCM.POST.ANE ---
Anesthesia: Postop Eval I Current Vital Signs Temperature: 96.6 F Pulse Rate: 82 Blood Pressure: 108/67 Respiratory Rate: 16 Pulse Ox: 97 Oxygen Delivery Method: Room Air Assessment Airway patent: Yes Spontaneous unlabored respirations: Yes Mental status: Awake nausea: No Vomiting: No Anesthesia Complication: No Fluid Hydration Crystalloid volume administer (ml): 500 Total IV fluid infused: 500 Progress Note Anesthesia document: Postop Eval 1 completed: Yes
== END 2024-10-16 13:13 | disposition home or self-care (01) ==
LOC: EN 10:22 → AC 10:23
PROVIDERS: PCP Internal Medicine; Referring Provider Internal Medicine; Visit Provider Surgery
PROC: 0DJD8ZZ Inspection of Lower Intestinal Tract, Via Natural or Artificial Opening Endoscopic (ICD-10-PCS; CPT 45378; principal; 2024-10-16 11:25)
DX: Z12.11 Encounter for screening for malignant neoplasm of colon (principal); Z86.0100 Personal history of colon polyps, unspecified; K64.0 First degree hemorrhoids; Z87.891 Personal history of nicotine dependence; I10 Essential (primary) hypertension; K21.9 Gastro-esophageal reflux disease without esophagitis; E78.00 Pure hypercholesterolemia, unspecified; K57.30 Diverticulosis of large intestine without perforation or abscess without bleeding; Z79.899 Other long term (current) drug therapy; Z79.84 Long term (current) use of oral hypoglycemic drugs; Z79.85 Long-term (current) use of injectable non-insulin antidiabetic drugs; Z90.49 Acquired absence of other specified parts of digestive tract; K64.4 Residual hemorrhoidal skin tags; K63.5 Polyp of colon
CPT/HCPCS: 45385; 45380; 82962; 88305

== ENCOUNTER → 2024-11-07 | Outpatient (CLI) | payer MEDICARE, SELFPAY ==
[2019-12-19 14:10] VITALS: BMI 37.3
--- NOTE | 2024-11-07 10:45 | BI_ITS ---
EXAM: SCRN MAMM (CAD)W/CARMEN BILAT DATE: 11/07/2024 CLINICAL HISTORY: F, Age 68 y/o , ANNUAL SCREENING, H/O DCIS Personal history of breast cancer. Prior left lumpectomy and radiation treatment. TECHNIQUE: Procedure Code: [id number] Modality: MG Procedure: SCRN MAMM (CAD)W/CARMEN BILAT COMPARISON: Prior exam(s) dated November 03, 2023.. FINDINGS: TISSUE DENSITY: The breasts are heterogeneously dense, which may obscure small masses. Persistent nodular density in the deep upper lateral aspect of the left breast suggestive of possible postoperative hematoma. Bilateral Breast Mammographic Findings: No suspicious masses, areas of developing architectural distortion, or suspicious calcifications. There has been no significant interval change. BI/SCRN MAMM (CAD)W/CARMEN BILAT IMPRESSION: Stable screening bilateral mammogram. OVERALL FINAL ASSESSMENT BI-RADS 2: BENIGN RECOMMENDATION: Routine annual follow-up in 1 Year A letter with findings and recommendations will be mailed to the patient. Reading Location: [facility]
== END | disposition home or self-care (01) ==
LOC: OPBI 10:40
PROVIDERS: PCP Internal Medicine; Referring Provider Student in an Organized Health Care Education/Training Program; Visit Provider Student in an Organized Health Care Education/Training Program
DX: Z12.31 Encounter for screening mammogram for malignant neoplasm of breast (principal); Z85.3 Personal history of malignant neoplasm of breast
CPT/HCPCS: 77063; 77067

== ENCOUNTER → 2024-11-22 | Outpatient (CLI) | payer MEDICARE, SELFPAY ==
[2019-12-19 14:10] VITALS: BMI 37.3
[2024-11-22 10:24] LABS: Hematocrit 34.9 % (37-47); Hemoglobin 12.1 g/dL (12.0-15.0); Immature Granulocytes Count 0.010 X10^3/uL (0.0-0.0); Mean Corp Hgb Conc 34.7 g/dL (32-36); Mean Corpuscular Volume 92.8 fL (81-99); Mean Platelet Vol. 10.9 fl (6.2-12.0); NRBC Flagged by Analyzer 0 % (0-5); Platelet Count 187 K/mm3 (150-450); RBC Distribution Width CV 12.7 % (11.6-14.6); RBC Distribution Width SD 43.0 fl (35.1-43.9); Red Blood Count 3.76 M/mm3 (4.2-5.4); White Blood Count 5.8 K/mm3 (4.4-11.0)
[2024-11-22 10:53] LABS: AST(SGOT) 20 U/L (<=31); Alanine Aminotransfer ALT/SGPT 22 U/L (<=34); Albumin, Serum 4.1 g/dL (3.4-4.8); Alkaline Phosphatase 47 U/L (35-104); Anion Gap 10 (5-15); BUN 16 mg/dL (4-19); BUN/Creat Ratio 16.6 RATIO (10-20); Bilirubin, Direct 0.29 mg/dL (0.00-0.30); Calcium,Total 10.0 mg/dL (7.6-11.0); Carbon Dioxide 25.0 mmol/L (21.0-32.0); Chloride 104 mmol/L (98-108); Cholesterol 152 mg/dL (<=200); Globulin 2.8 g/dL (2.2-4.2); Glucose 96 mg/dL (70-99); Low Density Lipoprotein Calc. 74 mg/dL; Potassium 4.1 mmol/L (3.3-5.1); Triglycerides 104 mg/dL; Very Low Density Lipoprotein 21 mg/dL (5-40); cholesterol:hdl ratio screen 2.63
== END | disposition home or self-care (01) ==
LOC: MTLAB 08:15
PROVIDERS: PCP Internal Medicine; Referring Provider Internal Medicine; Visit Provider Internal Medicine
DX: I10 Essential (primary) hypertension (principal); E11.9 Type 2 diabetes mellitus without complications; E78.5 Hyperlipidemia, unspecified
CPT/HCPCS: 36415; 80053; 80061; 82248; 83036; 84443; 85025